=== PATIENT | female | born 2005 | race Caucasian/White ===

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

== ENCOUNTER 2024-04-05 16:31 | Emergency (ER) | payer OTHER, SELFPAY ==
[2024-04-05 16:33] VITALS: BP 122/81; PULSE 66; RESP 18; TEMP 36.9; O2SAT 99; BMI 24.0
--- NOTE | 2024-04-05 16:35 | ED.GENADULT ---
HPI - General Adult General Date Seen: 04/05/24 Chief complaint: Headache/Migraine Stated complaint: migraine Time Seen by Provider: 04/05/24 16:34 History of Present Illness HPI narrative: 18-year-old female with a history migraine headaches referred from the [facility] for evaluation of intractable headache. She has apparently been experiencing headache for the past few days. She was seen in the emergency room and another ER yesterday. She went to the [facility] for ongoing headache pain today. Since they did not have any sufficient headache medications are for her, they referred her here to the ER. Vital signs were stable in the urgent care. No fever. Blood pressure normal. Per records through the [facility] care link it looks like she was seen in the emergency room at [facility] on 04/02 for headache. She had been seen in the urgency room on the day prior to that. doctors notes from that visit are not available. . Patient is able to show any screen shots of her discharge or. She received a combination of Toradol, Reglan, Benadryl while at the urgency room on and did have some temporarily improvement after that. At the [facility] ER on Saturday she received Haldol, Toradol, with no relief. She has a history of occasional headaches but not really frequent or chronic headaches or migraines. She typically gets headaches behind her right eye. Her current headache began Saturday. No trauma antecedent. No recent fever. No known neck pain or chiropractic manipulation. The headache started gradually in the back of her head at the nape of her neck on Saturday and got steadily worse throughout the day and much worse Saturday evening. Headache is fairly generalized. Feels like pressure like her brain is going to squeeze out of her ears. Came on gradually and got steadily worse through the day. It has been fairly generalized since Saturday. It has been fairly continuous. Perhaps get slightly better when she lays down a bit worse when she gets up. It is associated with some nausea but not much vomiting. Vision has been normal. No focal numbness or weakness. No confusion. No neck stiffness. No fever chills. She does have some mild nasal congestion which she attributes to seasonal allergies that began today. She had not had any nasal congestion earlier in the week. No cough. No diarrhea. Urination has been normal. No abdominal pain or flank pain. She had a test 2 days ago at the [facility] ER and it was negative. Related Data Home Medications ?Medication ?Instructions ?Recorded ?Confirmed levonorgestrel 21 mcg/24 hr (up to 1 device intrauterine ONCE 08/29/22 04/05/24 8 years) 52 mg intrauterine device (Mirena) Previous Rx's ?Medication ?Instructions ?Recorded albuterol sulfate 90 mcg/actuation 1 inh inhalation Q6-8H PRN 11/21/23 aerosol inhaler shortness of breath or wheezing #8.5 grams fluticasone 250 mcg-salmeterol 50 1 inh inhalation BID #60 ea 11/21/23 mcg/dose blistr powdr for inhalation (Advair Diskus) fluoxetine 40 mg capsule 40 mg PO QDAY #90 caps 12/03/23 trazodone 50 mg tablet 100 mg (2 x 50 mg) PO QHS #180 tabs 12/03/23 Allergies Allergy/AdvReac Type Severity Reaction Status Date / Time doxycycline AdvReac Mild Vomiting Verified 04/05/24 17:22 PFSH [facility] Medical History (Updated 04/05/24 @ 19:10 by Edmund Camarillo MD) Right wrist pain ?M25.531 - Pain in right wrist (ICD-10) Postconcussion syndrome ?F07.81 - Postconcussional syndrome (ICD-10) Headache ?R51.9 - Headache, unspecified (ICD-10) Ankle pain, left ?M25.572 - Pain in left ankle and joints of left foot (ICD-10) Surgical History S/P correction of deviated nasal septum ?Z98.890 - Other specified postprocedural states (ICD-10) History of tonsillectomy and adenoidectomy (07/02/12) ?Z90.89 - Acquired absence of other organs (ICD-10) History of surgery on extremity ?Z98.890 - Other specified postprocedural states (ICD-10) Family History Family/Other Heart disease Uncle Colon cancer Mother Thyroid disease FH: mental illness Father High cholesterol Other High blood pressure History of hyperlipidemia Stroke Social History Narrative: Does not drink alcohol Does not use illicit drugs Non-smoker Smoking Status: Never smoker Do you use any of these nicotine containing products: None How often do you have a drink containing alcohol: never AUDIT-C Alcohol total score: 0 Non-prescribed substance use: denies use Little interest or pleasure in doing things: several days Feeling down, depressed, or hopeless: not at all Exam Narrative: Exam Narrative: Primary Survey: A- patent. Speaking clearly. Phonation normal. No stridor. B- breathing easily. Lung sounds clear and equal. Oxygen saturation normal on room air C- no active bleeding. Blood pressure stable. Symmetric pulses and cap refill in 4 extremities. D- alert and oriented x3. GCS 15. No focal deficits. Constitutional: Appears well-developed and well-nourished. Alert. Conversant. Non toxic. HENT: Head: Atraumatic. Nose: Nose normal. Mouth/Throat: Oral mucosa is clear and moist. no trismus. Pharynx normal. Tonsils surgically absent. Eyes: Conjunctivae normal. EOM normal. Pupils equal, round, and reactive to light. No scleral icterus. Neck: Normal range of motion. Neck supple. No tracheal deviation present. Cardiovascular: Normal rate, regular rhythm. No gallop. No friction rub. No murmur heard. Symmetric radial artery pulses Pulmonary/Chest: Effort normal. No stridor. No respiratory distress. No wheezes. No rales. No rhonchi . No tenderness. Abdominal: Soft. Bowel sounds normal. No distension. No mass. No tenderness. No rebound. No guarding. Musculoskeletal: RUE: Normal range of motion. No tenderness. No deformity LUE: Normal range of motion. No tenderness. No deformity RLE: Normal range of motion. No edema. No tenderness. No deformity LLE: Normal range of motion. No edema. No tenderness. No deformity Lymph: No cervical adenopathy. Neurological: Mental status normal. Attention normal. Alert and oriented x3. GCS 15. Memory normal. Speech fluent. Cognition normal. Cranial Nerves intact II-XII except I did not formally test gag or visual acuity. EOMI. Palate elevates symmetrically and tongue protrudes in the midline. Strength: 5/5 trapezius on the right and left 5/5 deltoid on the right and left 5/5 biceps on the right and left 5/5 triceps on the right and left 5/5 division sergeant on the right and left 5/5 thumb opposition on the right and left 5/5 finger abduction on the right and left 5/5 hip flexors (L3) on the right and left 5/5 quadriceps (L4) on the right and left 5/5 tibialis anterior on the right and left 5/5 EHL (L5) on the right and left 5/5 gastrocnemius (S1) on the right and left 5/5 hamstring on the right and left Sensation intact to light touch in both upper extremities (C4-T1) Sensation intact to light touch in Both lower extremities (L4-S1). Finger to nose and coordination normal. Gait normal. Skin: Skin is warm and dry. No rash noted. No pallor. Normal capillary refill. Psychiatric: Normal mood. Normal affect. Has her hoodie pulled down over her eyes because she is uncomfortable but she is otherwise polite. Const: Vital Signs, click to edit/add: Vital Signs - 24 hr 04/05/24 16:33 04/05/24 18:25 Temperature 98.5 F Pulse Rate [Right Pulse Oximeter] 66 62 Respiratory Rate 18 16 Blood Pressure [Ri ght Upper Arm] 122/81 119/77 Pulse Oximetry 99 100 Oxygen Delivery Me thod Room Air Room Air Course Course ED Course: Recheck -1800. Headache improving slightly but not a lot better. Will add additional meds. Reevaluation(s) Reevaluation #1: Recheck-says her headache is now getting much better after Zyprexa. Reevaluation #2: Recheck-for she is requesting discharge home. She texted her mother to come pick her up. Vital Signs Vital signs: Initial Vital Signs Temperature 98.5 F 04/05/24 16:33 Temperature Source Temporal Artery Scan 04/05/24 16:33 Pulse Rate 66 04/05/24 16:33 Respiratory Rate 18 04/05/24 16:33 Blood Pressure 122/81 04/05/24 16:33 Blood Pressure Mean 94 04/05/24 16:33 Blood Pressure Position Sitting 04/05/24 16:33 Pulse Oximetry 99 04/05/24 16:33 Oxygen Delivery Method Room Air 04/05/24 16:33 Vital Signs Temperature 98.5 F 04/05/24 16:33 Pulse Rate 66 04/05/24 16:33 Respiratory Rate 18 04/05/24 16:33 Blood Pressure 122/81 04/05/24 16:33 Pulse Oximetry 99 04/05/24 16:33 Oxygen Delivery Method Room Air 04/05/24 16:33 Temperature 98.5 F 04/05/24 16:33 Pulse Rate 62 04/05/24 18:25 Respiratory Rate 16 04/05/24 18:25 Blood Pressure 119/77 04/05/24 18:25 Pulse Oximetry 100 04/05/24 18:25 Oxygen Delivery Method Room Air 04/05/24 18:25 Medications Administered Medications: Discontinued Medications Generic Name Dose Route Start Last Admin Trade Name Freq PRN Reason Stop Dose Admin Dexamethasone 10 mg 04/05/24 16:59 04/05/24 17:35 Dexamethasone 10 Mg/Ml Inj PO 04/05/24 17:00 10 mg ONCE ONE Administration Diphenhydramine HCl 12.5 mg 04/05/24 16:59 04/05/24 17:39 Diphenhydramine 50 Mg/Ml Inj IVP 04/05/24 17:00 12.5 mg ONCE ONE Administration Sodium Chloride 1,000 mls @ 1,000 mls/hr 04/05/24 17:00 04/05/24 18:47 0.9 % Sodium Chloride 1000 Ml IV 04/05/24 17:59 Infused .Q1H MADALYN Infusion Ketorolac Tromethamine 15 mg 04/05/24 16:59 04/05/24 17:36 Ketorolac 15 Mg/Ml Inj IVP 04/05/24 17:00 15 mg ONCE ONE Administration Metoclopramide HCl 10 mg 04/05/24 16:59 04/05/24 17:37 Metoclopramide Hcl 5 Mg/Ml Inj IVP 04/05/24 17:00 10 mg ONCE ONE Administration Olanzapine 5 mg 04/05/24 18:03 04/05/24 18:24 Olanzapine 5 Mg/Ml Inj IVP 04/05/24 18:04 5 mg ONCE ONE Administration Medical Decision Making MDM Narrative Medical decision making narrative: Ths patient presents with a headache. It began gradually on Saturday morning and progressed and worsened throughout the day then. It has been fairly persistent since then. A broad differential diagnosis was considered including tension, migraine, analgesic rebound, occipital neuralgia, etc. Other less common but serious causes considered included meningitis, encephalitis, subarachnoid bleed, stroke, tumor, etc. overall with gradual onset, would be low likelihood for vascular catastrophe such as subarachnoid or cervical artery dissection. However given that this is her 3rd visit to ER in the past 3 days for this headache, we did obtain neuro imaging. Head CT scan is negative for any acute intracranial hemorrhage. Discussed with the patient that at this point (5 days out from onset) sensitivity of noncontrast head CT is inadequate to completely rule out subarachnoid. CT angiogram though is negative for any aneurysm. Discussed possible lumbar puncture to look for xanthochromia. Discussed risks and benefits of the procedure. At this point the patient and I agree that the risks of postdural headache and discomfort from the procedure would outweigh the benefits. She does not have a fever. Normal white count. CRP normal. No neck stiffness or meningismus to suggest meningitis. She does not have any associated sore throat or cough to suggest COVID. Patients questions were answered and they feel improved after above interventions in ED. Supportive outpatient management is therefore indicated. Headache precautions given for home. She will return to the ER right away for headache comes back or she has any other problems. Lab Data Labs: Lab Results 04/05/24 Range/Units 17:15 WBC 7.05 (4.50-11.00) K/uL RBC 4.74 (4.00-5.20) m/uL Hgb 14.1 (12.0-16.0) gm/dL Hct 43.9 (33.0-51.0) % MCV 93 (80-100) fL MCH 30 (26-34) pg MCHC 32 (32-36) gm/dL RDW Coeff of Shweta 11.8 (11.5-15.5) % Plt Count 267 (140-440) K/uL Neut % (Auto) 66.6 (42.0-72.0) % Lymph % (Auto) 21.7 (20-44) % [place] % (Auto) 10.6 (0.0-11.0) % Eos % (Auto) 0.3 (0.0-7.0) % Baso % (Auto) 0.1 (0.0-3.0) % Neut # (Auto) 4.69 (1.7-7.0) K/uL Lymph # (Auto) 1.53 (0.90-2.90) K/uL [place] # (Auto) 0.70 (0.00-0.90) K/UL Eos # (Auto) 0.02 (0.00-0.50) K/uL Baso # (Auto) 0.01 (0.00-0.30) K/uL Abs Immat Gran (auto) 0.05 (0.00-0.30) K/uL Imm/Tot Granulo (auto) 0.7 % Sodium 140 (135-149) mmol/L Potassium 3.3 L (3.6-5.1) mmol/L Chloride 104 (96-114) mmol/L Carbon Dioxide 24 (20-32) mmol/L Anion Gap 12 (7-15) mEq/L BUN 8 (5-24) mg/dL Creatinine 0.7 (0.5-1.5) mg/dL Estimated Creat Clear 110.70 Estimated GFR 127 ml/min Glucose 99 (60-115) mg/dL Calcium 9.9 (8.4-10.6) mg/dL C-Reactive Protein < 0.5 L (0.5-1.0) mg/dL Imaging Data CT scan - head: Attestation: I have reviewed the pertinent imaging results. Radiologist's impression: IMPRESSION: No CT evidence of acute intracranial abnormality. CTA Head and Neck: Attestation: I have reviewed the pertinent imaging results. Radiologist's impression: Head IMPRESSION: No intracranial proximal large vessel occlusion, flow-limiting luminal stenosis, or cerebral aneurysm. Neck IMPRESSION: Patent cervical arterial vasculature without hemodynamically significant luminal stenosis. Discharge Plan Discharge Clinical Impression: Headache Patient Disposition: Home, Self-Care Condition: Stable Instructions: Acute Headache (ED) Additional Instructions: As we discussed, use caution tonight. Do not drive or operate machinery. Do not drink alcohol. Get plenty of rest tonight. If you have any worsening symptoms such as fever, nausea vomiting, blurry vision, or if your headache comes back, please return to the ER right away to be rechecked. Prescriptions: No Action Mirena 21 mcg/24 hours (8 yrs) 52 mg intrauterine device 1 device intrauterine ONCE Rx Instructions: as a single dose fluticasone propion-salmeterol [Advair Diskus] 250-50 mcg/dose blister with device 1 inh inhalation BID Qty: 60 3RF albuterol sulfate 90 mcg/actuation HFA aerosol inhaler 1 inh inhalation Q6-8H PRN (Reason: shortness of breath or wheezing) Qty: 8.5 3RF trazodone 50 mg tablet 100 mg PO QHS Qty: 180 3RF fluoxetine 40 mg capsule 40 mg PO QDAY Qty: 90 3RF Follow Up/Referrals: Cassandra Breen PA-C [Primary Care Provider] - Stand Alone Forms: [facility] Info Instructions
--- NOTE | 2024-04-05 16:59 | CRLHL7_ITS ---
For Patients: As a result of the Century Cures Act, medical imaging exams and procedure reports are released immediately into your electronic medical record. You may view this report before your referring provider. If you have questions, please contact your health care provider. CLINICAL HISTORY: Migraines and neck pain. TECHNIQUE: Standard helical CT image acquisition through the head was performed. COMPARISON: Head CT dated 10/27/2022. FINDINGS: No acute intracranial hemorrhage, extra-axial collection, mass effect or midline shift. Jacques-white matter differentiation is preserved. The ventricles are normal in size and morphology. The orbits are unremarkable. The paranasal sinuses and mastoid air cells are well aerated. IMPRESSION: No CT evidence of acute intracranial abnormality. Please note that all CT scans at this facility use dose modulation, iterative reconstruction, and/or weight-based dosing when appropriate to reduce radiation dose to as low as reasonably achievable. Dictated by Len Gaffney MD @ 04/05/2024 5:54:29 PM (Electronically Signed)
--- NOTE | 2024-04-05 16:59 | CRLHL7_ITS ---
For Patients: As a result of the Century Cures Act, medical imaging exams and procedure reports are released immediately into your electronic medical record. You may view this report before your referring provider. If you have questions, please contact your health care provider. CLINICAL HISTORY: Migraines and neck pain. TECHNIQUE: Standard helical CT image acquisition through the neck was performed after intravenous contrast bolus enhancement. 3D and MIP reconstructions were performed at a separate workstation and permanently archived. COMPARISON: None available. FINDINGS: The origins of the great vessels from the aortic arch are patent. The common carotid arteries are patent. No significant luminal stenoses of the proximal ICAs by NASCET criteria. The more distal cervical segments of the ICAs are patent. The origins and cervical segments of the vertebral arteries are patent. IMPRESSION: Patent cervical arterial vasculature without hemodynamically significant luminal stenosis. Please note that all CT scans at this facility use dose modulation, iterative reconstruction, and/or weight-based dosing when appropriate to reduce radiation dose to as low as reasonably achievable. Dictated by Len Gaffney MD @ 04/05/2024 5:58:48 PM (Electronically Signed)
--- NOTE | 2024-04-05 16:59 | CRLHL7_ITS ---
For Patients: As a result of the Century Cures Act, medical imaging exams and procedure reports are released immediately into your electronic medical record. You may view this report before your referring provider. If you have questions, please contact your health care provider. CLINICAL HISTORY: Migraines and neck pain. TECHNIQUE: Standard helical CT image acquisition through the head following the administration of intravenous contrast was performed. 3D and MIP reconstructions were performed at a separate workstation and permanently archived. COMPARISON: None available. FINDINGS: No intracranial proximal large vessel occlusion or flow-limiting luminal stenosis. No evidence of cerebral aneurysm. No findings to suggest an arterial-venous shunting lesion. The major dural venous sinuses and deep venous system are patent. IMPRESSION: No intracranial proximal large vessel occlusion, flow-limiting luminal stenosis, or cerebral aneurysm. Please note that all CT scans at this facility use dose modulation, iterative reconstruction, and/or weight-based dosing when appropriate to reduce radiation dose to as low as reasonably achievable. Dictated by Len Gaffney MD @ 04/05/2024 5:59:30 PM (Electronically Signed)
--- OUTSIDE RECORDS SUMMARY | 2024-04-05 17:09 | XMS_ITS | Encounter Summary ---
Author Organization [place] Address [address] [facility] [place] [address] Care Team Providers Care Director Cpg Name Role Phone [facility] Primary Care Provider Carol Hughes MD Unavailable Carol Snider MD Unavailable [phone] Joseph Branes MD Unavailable [phone] Encounter Details Date Type Department Care Team (Late st Contact Info) Description [place]/20[place] [facility] [place] [facility] [address] [place] [address] Amber Lofton RN Social History Tobacco Use Types Packs/Day Years Used Date Smoking Tobacco: Never Smokeless Tobacco: Never Alcohol Use Standard Drinks/Week Comments No 0 (1 standard drink = 0.6 oz pur e alcohol) PHQ-2 Answer Date Recorded PHQ-2 Score 0 09/24/2023 Adolescent Education Answer Date Record ed Getting School Help Needed Not on file 04/28 Sex and Gender Information Value Date Recorded Sex Assigned at Not on file Gender Identity Not on file Sexual Orientation Not on file documented as of this encounter Plan of Treatment Not on file documented as of this encounter Visit Diagnoses Not on filedocumented in this encounter Care Teams Director Cpg Relationship Specialty Start Date End Date Clinic, [address] [address] PCP - General Internal Medicine 10/21/17 Carol Hughes MD [address] [place] [address] Orthopedics 11/23/17 Carol Snider MD [address] [address] Referring Physician Orthopaedic Surgery 11/23/17 Joseph Barnes MD [address] [place] [address] Assigned Musculoskeletal Provider 05/11/23 documented as of this encounter
--- OUTSIDE RECORDS SUMMARY | 2024-04-05 17:09 | XMS_ITS | Encounter Summary ---
Author Organization [place] Address [address] [place] [address] Care Team Providers Care School Business Manager Name Role Phone Clinic, [facility] Primary Care Provider Carol Hughes MD Unavailable [phone] Carol Snider MD Unavailable [phone] Joseph Barnes MD Unavailable [phone] Reason for Visit * Reason Onset Date Comments Schedule Surgery 03/31/2024 Encounter Details Date Type Department Care Team (Late st Contact Info) Description 03/31/2024 Telephone [facility] [address] [address] Joseph Barnes MD [address] [place] [id number] Schedule Surgery Social History Tobacco Use Types Packs/Day Years [...] on file documented as of this encounter Miscellaneous Notes * Telephone Encounter - Maggie Fine - 03/31/2024 3:44 PM CDT Other: Patient is calling to schedule screw removal surgery with Dr. Barnes. Please call her back. Could we [facility] this [facility] you [facility] or would you prefer to receive a phone call?: Patient would prefer a phone call Okay to leave a detailed message?: Yes at Cell number on file: Telephone Information: Mobile Not on file. documented in this encounter Plan of Treatment Not on file documented as of this encounter Visit Diagnoses Not on filedocumented in this encounter Care Teams School Business Manager Relationship Specialty Start Date End Date [facility], [address] [address] PCP - General Internal Medicine 10/21/17 Carol Hughes MD [address] [place] [address] Orthopedics 11/23/17 Carol Snider MD [address] [address] Referring Physician Orthopaedic Surgery 11/23/17 Joseph Barnes MD [address] [place] [id number] Assigned Musculoskeletal Provider 05/11/23 documented as of this encounter
--- OUTSIDE RECORDS SUMMARY | 2024-04-05 17:09 | XMS_ITS | Referral Summary ---
Author Organization [place] Address [address] [facility] [place] [address] Care Team Providers Care Machine Feller Name Role Phone Clinic, [facility] Primary Care Provider Carol Hughes MD Unavailable [phone] Carol Snider MD Unavailable [phone] Joseph Barnes MD Unavailable Encounters Date Type Department Care Team Description 04/03/2024 11:24 PM CDT - 04/04/2024 2:12 AM CDT Emergency [facility] Emergency Department [address] [place] [phone] Clement Camarillo MD Nonintractable headache, unspecified chronicity pattern, unspecified headache type Discharge Disposition: Home or Self Care 04/03/2024 Travel 04/01/2024 MyC Medical Advice [facility] [address] [address] Amber Lofton RN 03/31/2024 Telephone [facility] [address] [address] Joseph Barnes MD Schedule Surgery from Last 3 Months Allergies Active Allergy Reactions Criticality Noted Date Comments Doxycycline Nausea,Nausea and Vomiting Low 09/10/19 23 Medications Medication Sig Dispensed Refills Start Date End Date Status albuterol (PROAIR HFA/PROVENTIL HFA/VENTOLIN HFA) 108 (90 Base) MCG/ACT inhaler Inhale 2 puffs into the lungs every 6 hours as needed Active FLUoxetine (PROZAC) 40 MG capsule Take 1 capsule by mouth daily Active traZODone (DESYREL) 50 MG tablet Take 100 mg by mouth at bedtime Active gabapentin (NEURONTIN) 100 MG capsuleIndications:R ight leg pain Take 3 capsules (300 mg) by mouth at bedtime 50 capsule 08/07/2023 Active hydrOXYzine HCl (ATARAX) 25 MG tabletIndications:Ri ght leg pain Take 1 tablet (25 mg) by mouth 3 times daily as needed for itching, anxiety or other (pain) 20 tablet 08/07/2023 Active senna-docusate (SENOKOT-S/PERICOLAC E) 8.6-50 MG tabletIndications:Po st-op pain,Right leg pain Take 1 tablet by mouth 2 times daily 60 tablet 08/08/2023 Active oxyCODONE (ROXICODONE) 5 MG tabletIndications:Ri ght leg pain Take 1-2 tablets (5-10 mg) by mouth every 4 hours as needed for moderate to severe pain 30 tablet 08/08/2023 Active Active Problems Problem Noted Date Diagnosed Date Right leg pain 08/07/2023 Post-op pain 03/05/2018 Resolved Problems Problem Noted Date Diagnosed Date Resolved Date Pain in joint involving ankle and foot, left 8 05/13/2019 Aftercare following surgery of the musculoskeletal system 06/04/2018 05/13/2019 Left knee pain 12/03/2017 05/13/2019 Social History Tobacco Use Types Packs/Day Years Used Date Smoking Tobacco: Never Smokeless Tobacco: Never Tobacco Cessation:Counseling Given: Not Answered Alcohol Use Standard Drinks/Week Comments No 0 (1 standard drink = 0.6 oz pur e alcohol) PHQ-2 Answer Date Recorded PHQ-2 Score 0 09/24/2023 Adolescent Education Answer Date Record ed Getting School Help Needed Not on file 04/28 Sex and Gender Information Value Date Recorded Sex Assigned at Not on file Gender Identity Not on file Sexual Orientation Not on file Last Filed Vital Signs Vital Sign Reading Time Taken Comments Blood Pressure 126/72 04/04/2024 2:12 AM CDT Pulse 71 04/04/2024 2:12 AM CDT Temperature 37.1 ??C (98.7 ??F) 04/03/2024 11:16 PM C DT Respiratory Rate 16 04/04/2024 2:12 AM CDT Oxygen Saturation 97% 04/04/2024 2:12 AM CDT Inhaled Oxygen Concentration - - Weight 63.5 kg (140 lb) 04/03/2024 11:16 PM CDT Height 162.6 cm (5' 4) 08/07/2023 8:00 AM 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 LOOM 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 Body Mass Index 24.03 08/07/2023 8:00 AM JACQUARD LOOM HEDDLES TIER Plan of Treatment Not on file Medical Devices Implanted Type Area Hazmat Cdl A Driver Device Identifier Shelf Expiration Date Model / Serial / Lot Tibial Nail Implanted:Qty: 1 on 03/05/2018 by Joseph Barnes MD at [facility] Left: Tibia 09/11/2026 47-2495-34 0-09 / [id number] 5.0 Cortical Screw Implanted:Qty: 1 on 03/05/2018 by Joseph Barnes MD at [facility] Left: Tibia MALCOLM 06/13/2027 47-2484-04 0-50 / / [id number] 5.0 Cortical Screw Implanted:Qty: 1 on 03/05/2018 by Joseph Barnes MD at [facility] Left: Tibia 10/12/2026 47-2484-03 2-50 / / [id number] Malcolm Natural Nail Tibial Nail 9.3 Mm Yellow Implanted:Qty: 1 on 08/07/2023 by Joseph Barnes MD at [facility] Right: Leg MALCOLM [id number] 04/29/2032 47-249 5-32 0-09 [id number] Malcolm Natural Nail 5.0 Mm Cortical Screw 27.5 Mm Implanted:Qty: 1 on 08/07/2023 by Joseph Barnes MD at [facility] Right: Leg MALCOLM [id number] 05/14/2027 47-248 4- 750 / [id number] Malcolm Natural Nail 5.0 Mm Cortical Screw 37.5mm Implanted:Qty: 1 on 08/07/2023 by oJseph Barnes MD at [facility] Right: Leg MALCOLM [id number] 06/02/2032 47-248 4- / [id number] Advance Directives For more information, please contact: [phone] * Full Code (Latest Code Status on File) Date Activated Date Inactivated Comments 08/07/2023 6:12 PM 08/08/2023 6:23 PM All basic an d advanced life-sustaining interventions are performed as appropriate Question Answer Comments Code status determined by: Discussion with patie nt/ legal decision maker * Full Code Date Activated Date Inactivated Comments 03/06/2018 7:18 AM 08/07/2023 7:45 AM * Full Code Date Activated Date Inactivated Comments 03/05/2018 4:25 PM 03/06/2018 7:18 AM Care Teams Machine Feller Relationship Specialty Start Date End Date Clinic, [address] [address] PCP - General Internal Medicine 10/21/17 Carol Hughes MD [address] [place] [address] Orthopedics 11/23/17 Carol Snider MD [address] [address] Referring Physician Orthopaedic Surgery 11/23/17 Joseph Barnes MD [address] [place] [address] Assigned Musculoskeletal Provider 05/11/23
--- OUTSIDE RECORDS SUMMARY | 2024-04-05 17:09 | XMS_ITS | Clinical Summary ---
Author Organization [place] Address [address] [place] [address] Care Team Providers Care Auction Block Clerk Name Role Phone Clinic, [facility] Primary Care Provider Carol Hughes MD Unavailable Carol Snider MD Unavailable Joseph Barnes MD Unavailable Allergies Active Allergy Reactions Criticality Noted Date [...] 06/04/2018 05/13/2019 Left knee pain 12/03/2017 05/13/2019 Encounters Date Type Department Care Team Description 04/03/2024 11:24 PM CDT - 04/04/2024 2:12 AM CDT Emergency [facility] Emergency Department [address] [place] [phone] Clement Camarillo MD Nonintractable headache, unspecified chronicity pattern, unspecified headache type Discharge Disposition: Home or Self Care 04/03/2024 Travel 04/01/2024 MyC Medical Advice [facility] [address] [phone] Amber Lofton RN 03/31/2024 Telephone [facility] [address] [phone] Joseph Barnes MD Schedule Surgery from Last 3 Months Social History Tobacco Use Types Packs/Day Years [...] 162.6 cm (5' 4) 08/07/2023 8:00 AM RODDING ANODE WORKER Body Mass Index 24.03 08/07/2023 8:00 AM RODDING ANODE WORKER Plan of Treatment Health Maintenance Due Date Last Done Comments ADVANCE CARE PLANNING 2003 ANNUAL REVIEW OF HM ORDERS 2003 CHLAMYDIA SCREENING 2003 YEARLY PREVENTIVE VISIT 2003 HIV SCREENING 2018 HEPATITIS C SCREENING 2021 COVID-19 Vaccine ( season) 2024 08/15/2021, 10/25/2020, 10/08/2020 INFLUENZA VACCINE (#1) 2024 , 05/01/2019, 06/10/2009, Additional history exists DTAP/TDAP/TD IMMUNIZATION (7 - Td or Tdap) 08/30/2024 08/30/2014, 08/30/2014, 03/10/2008, Additional history exists HEPATITIS B IMMUNIZATION Completed 004, 2003, 2003 Pneumococcal Vaccine: Pediatrics (0 to 5 Years) and At-Risk Patients (6 to 64 Years) Aged Out 09/08/2004, 03/09/2004, 2003, Additional history exists No longer eligible based on patient's age to complete this topic HPV IMMUNIZATION Completed 03/11/2015, , 08/30/2014 MENINGITIS IMMUNIZATION Completed 05/16/20 21, 08/30/2014, 01/19/2004 PHQ-2 (once per calendar year) Completed 09/24/2023, 05/07/2023, 01/07/2018 RSV MONOCLONAL ANTIBODY Aged Out No l onger eligible based on patient's age to complete this topic Medical Devices Implanted Type Area Casting Wheel Operator Helper Device Identifier Shelf Expiration Date Model / Serial / Lot Tibial Nail Implanted:Qty: 1 on 03/05/2018 by Joseph Barnes MD at [facility] Left: Tibia 09/11/2026 47-2495-34 0-09 / / [id number] 5.0 Cortical Screw Implanted:Qty: 1 on 03/05/2018 by Joseph Barnes MD at [facility] Left: Tibia MALCOLM 06/13/2027 47-2484-04 0-50 / / [id number] 5.0 Cortical Screw Implanted:Qty: 1 on 03/05/2018 by Joseph Barnes MD at [facility] Left: Tibia 10/12/2026 47-2484-03 2-50 / / [id number] Malcolm Natural Nail Tibial Nail 9.3 Mm Yellow Implanted:Qty: 1 on 08/07/2023 by Joseph Barnes MD at [facility] Right: Leg MALCOLM [id number] 04/29/2032 47-249 5-32 0- / [id number] Malcolm Natural Nail 5.0 Mm Cortical Screw 27.5 Mm Implanted:Qty: 1 on 08/07/2023 by Joseph Barnes MD at [facility] Right: Leg MALCOLM [id number] 05/14/2027 47-248 4-02 7-50 / / [id number] Malcolm Natural Nail 5.0 Mm Cortical Screw 37.5mm Implanted:Qty: 1 on 08/07/2023 by Joseph Barnes MD at [facility] Right: Leg MALCOLM [id number] 06/02/2032 47-248 4-03 7-50 / / [id number] Advance Directives For more information, please contact: [phone] * Full Code (Latest Code Status on [...] 4:25 PM 03/06/2018 7:18 AM Care Teams Auction Block Clerk Relationship Specialty Start Date End Date Clinic, [address] [address] PCP - General Internal Medicine 10/21/17 Carol Hughes MD [address] [place] [address] Orthopedics 11/23/17 Carol Snider MD [address] [address] Referring Physician Orthopaedic Surgery 11/23/17 Joseph Barnes MD [address] [place] [address] Assigned Musculoskeletal Provider 05/11/23
--- OUTSIDE RECORDS SUMMARY | 2024-04-05 17:09 | XMS_ITS | Encounter Summary ---
Author Organization [place] Address [address] [place] [address] Care Team Providers Care Occupational Therapy Department Chair Name Role Phone [facility] Primary Care Provider Carol Hughes MD Unavailable [phone] Carol Snider MD Unavailable Joseph Barnes MD Unavailable [phone] Encounter Details Date Type Department Care Team (Latest Contact Info) Description 04/03/2024 Travel Social History Tobacco Use Types Packs/Day Years [...] on filedocumented in this encounter Care Teams Occupational Therapy Department Chair Relationship Specialty Start Date End Date [address] [address] PCP - General Internal Medicine 4/9/18 Carol Hughes MD [address] [place] [address] Orthopedics 11/23/17 Carol Snider MD [address] [address] Referring Physician Orthopaedic Surgery 11/23/17 Joseph Barnes MD [address] [place] [address] Assigned Musculoskeletal Provider 05/11/23 documented as of this encounter
--- OUTSIDE RECORDS SUMMARY | 2024-04-05 17:09 | XMS_ITS | Encounter Summary ---
Author Organization [place] Address [address] [facility] [place] [address] Care Team Providers Care Senior Sales Associate Name Role Phone Clinic, [facility] Primary Care Provider Carol Hughes MD Unavailable Carol Snider MD Unavailable Joseph Barnes MD Unavailable Reason for Visit * Reason Comments Headache Nausea Encounter Details Date Type Department Care Team ([facility] st Contact Info) Description 04/03/2024 11:24 PM CDT - 04/04/2024 2:12 AM CDT Emergency [facility] Emergency Department [address] [place] [id number] Clement Camarillo MD [address] [place] [address] Nonintractable headache, unspecified chronicity pattern, unspecified headache type Discharge Disposition: Home or Self Care Social History Tobacco Use Types Packs/Day Years [...] on file documented as of this encounter Last Filed Vital Signs Vital Sign Reading Time Taken Comments Blood Pressure 126/72 04/04/2024 2:12 AM CDT Pulse 71 04/04/2024 2:12 AM CDT Temperature 37.1 ??C (98.7 ??F) 04/03/2024 11:16 PM C DT Respiratory Rate 16 04/04/2024 2:12 AM CDT Oxygen Saturation 97% 04/04/2024 2:12 AM CDT Inhaled Oxygen Concentration - - Weight 63.5 kg (140 lb) 04/03/2024 11:16 PM CDT Height - - Body Mass Index 24.03 08/07/2023 8:00 AM CARPENTER PROTOTYPE documented in this encounter Discharge Instructions * Attachments The following attachments cannot be sent through Care Everywhere. * Headache (Guamanian) documented in this encounter Medications at Time of Discharge Medication Sig Dispensed Refills Start Date End Date albuterol (PROAIR HFA/PROVENTIL HFA/VENTOLIN HFA) 108 (90 Base) MCG/ACT inhaler Inhale 2 puffs into the lungs every 6 hours as needed FLUoxetine (PROZAC) 40 MG capsule Take 1 capsule by mouth daily gabapentin (NEURONTIN) 100 MG capsuleIndications:Righ t leg pain Take 3 capsules (300 mg) by mouth at bedtime 50 capsule 08/07/2023 hydrOXYzine HCl (ATARAX) 25 MG tabletIndications:Right leg pain Take 1 tablet (25 mg) by mouth 3 times daily as needed for itching, anxiety or other (pain) 20 tablet 08/07/2023 oxyCODONE (ROXICODONE) 5 MG tabletIndications:Right leg pain Take 1-2 tablets (5-10 mg) by mouth every 4 hours as needed for moderate to severe pain 30 tablet 08/08/2023 senna-docusate (SENOKOT-S/PERICOLACE) 8.6-50 MG tabletIndications:Post- op pain,Right leg pain Take 1 tablet by mouth 2 times daily 60 tablet 08/08/2023 traZODone (DESYREL) 50 MG tablet Take 100 mg by mouth at bedtime documented as of this encounter ED Notes * Clement Camarillo MD - 04/03/2024 11:57 PM CDT Images from the original note were not included. [facility] ([facility]) 04/03/24 History Chief Complaint Patient presents with Headache Nausea HPI Erica Zepeda is a 18 year old female who with PMH of articular disc disorder of TMJ, asthma, migraine, epistaxis, otitis media, and social anxiety disorder presents to the ED due to headache and nausea. Patient reports she has a history of severe headaches, was just evaluated urgent care center yesterday where she got Toradol, Reglan, Benadryl and had improvement in symptoms temporarily, however they recurred today. She also had CTA imaging of her head yesterday which was unremarkable. She reports that her headache is better when lying down. Bright lights make her headaches worse. Headache is bilateral, usually starts behind her right eye, and usually manageable with over the counter medications such as excedrin. She denies fevers, chills, neck pain or stiffness, weakness, numbness, vision changes, or other complaints with this. She denies any trauma or whiplash. No additional complaints at this time. As per triage note, Patient has headache and nausea with intermittent vomiting since Saturday. She was seen at urgent care yesterday and given migraine medication and was told to go to ED if pain returned. Past Medical History Past Medical History: Diagnosis Date Post concussion syndrome Tonsillar hypertrophy Past Surgical History: Procedure Laterality Date DENTAL SURGERY wisdom teeth OPEN REDUCTION INTERNAL FIXATION RODDING INTRAMEDULLARY TIBIA Left 03/05/2018 Procedure: OPEN REDUCTION INTERNAL FIXATION RODDING INTRAMEDULLARY TIBIA; Left Tibia/Fibula Derotational Osteotomy ; Surgeon: Joseph Barnes MD; Location: [facility] OR OPEN REDUCTION INTERNAL FIXATION RODDING INTRAMEDULLARY TIBIA Right 08/07/2023 Procedure: RIGHT FIBULA AND TIBIA DEROTATIONAL OSTEOTOMY; Surgeon: Joseph Barnes MD; Location: [facility] OR TONSILLECTOMY & ADENOIDECTOMY albuterol (PROAIR HFA/PROVENTIL HFA/VENTOLIN HFA) 108 (90 Base) MCG/ACT inhaler FLUoxetine (PROZAC) 40 MG capsule gabapentin (NEURONTIN) 100 MG capsule hydrOXYzine HCl (ATARAX) 25 MG tablet oxyCODONE (ROXICODONE) 5 MG tablet senna-docusate (SENOKOT-S/PERICOLACE) 8.6-50 MG tablet traZODone (DESYREL) 50 MG tablet Allergies Allergen Reactions Doxycycline Nausea and Nausea and Vomiting Family History No family history on file. Social History Social History Tobacco Use Smoking status: Never Smokeless tobacco: Never Substance Use Topics Alcohol use: No Drug use: No Past medical history, past surgical history, medications, allergies, family history, and social history were reviewed with the patient. No additional pertinent items. A medically appropriate review of systems was performed with pertinent positives and negatives noted in the HPI, and all other systems negative. Physical Exam BP: 132/88 Pulse: 68 Temp: 98.7 ??F (37.1 ??C) Resp: 19 Weight: 63.5 kg (140 lb) SpO2: 98 % Physical Exam Vitals and nursing note reviewed. Constitutional: General: She is not in acute distress. Appearance: Normal appearance. She is not diaphoretic. HENT: Head: Atraumatic. Mouth/Throat: Mouth: Mucous membranes are moist. Eyes: General: No scleral icterus. Conjunctiva/sclera: Conjunctivae normal. Cardiovascular: Rate and Rhythm: Normal rate. Heart sounds: Normal heart sounds. Pulmonary: Effort: No respiratory distress. Breath sounds: Normal breath sounds. Abdominal: General: Abdomen is flat. Musculoskeletal: Cervical back: Neck supple. Skin: General: Skin is warm. Findings: No rash. Neurological: General: No focal deficit present. Mental Status: She is alert and oriented to person, place, and time. Psychiatric: Mood and Affect: Mood normal. Behavior: Behavior normal. ED Course, Procedures, & Data Procedures No results found for any visits on 04/03/24. Medications sodium chloride 0.9% BOLUS 1,000 mL (1,000 mLs Intravenous $New Bag 04/04/24 0102) magnesium sulfate 2 g in 50 mL sterile water intermittent infusion (2 g Intravenous $New Bag 04/04/24 010) haloperidol lactate (HALDOL) injection 5 mg (5 mg Intravenous $Given 04/04/24 0100) diphenhydrAMINE (BENADRYL) injection 25 mg (25 mg Intravenous $Given 04/04/24 010) ketorolac (TORADOL) injection 30 mg (30 mg Intravenous Not Given 04/04/24 0142) Labs Ordered and Resulted from Time of ED Arrival to Time of ED Departure - No data to display No orders to display Critical care was not performed. Medical Decision Making The patient's presentation was of moderate complexity (an acute illness with systemic symptoms). The patient's evaluation involved: review of external note(s) from 1 sources (see separate area of note for details) The patient's management necessitated high risk (a parenteral controlled substance). Assessment & Plan Erica Zepeda is a 18 year old female who with PMH of articular disc disorder of TMJ, asthma, migraine, epistaxis, otitis media, and social anxiety disorder presents to the ED due to headache and nausea. Patient is nontoxic-appearing on exam, his vital signs within normal limits. She is neurologically intact. She has no red flag symptoms with this previously like flat and she just had CT imagingthat was unremarkable. She has noted no weakness, numbness, or vision changes. We did opt for more aggressive IV medication treatment today with Haldol, IV magnesium, Toradol, and IV fluids. Patient refused toradol this evening as she felt better after haldol and magnesium and fluids. Will plan for patient to follow-up outpatient as she may require specialist such as neurology to assist with management if she has recurrent headaches that are refractory to typical therapy. I have reviewed the nursing notes. I have reviewed the findings, diagnosis, plan and need for follow up with the patient. New Prescriptions No medications on file Final diagnoses: Nonintractable headache, unspecified chronicity pattern, unspecified headache type Clement Camarillo MD [facility] 04/03/2024 Clement Camarillo MD 04/04/24 0146 * Meli Morfin RN - 04/03/2024 11:17 PM CDT Headache and nausea with intermittent vomiting since Saturday. Was seen at urgent care yesterday andgiven migraine medication and was told to go to ED if pain returned Triage Assessment (Adult) Row Name 04/03/24 5701 Triage Assessment Airway WDL WDL Respiratory WDL Respiratory WDL WDL Skin Circulation/Temperature WDL Skin Circulation/Temperature WDL WDL Cardiac WDL Cardiac WDL WDL Peripheral/Neurovascular WDL Peripheral Neurovascular WDL WDL Cognitive/Neuro/Behavioral WDL Cognitive/Neuro/Behavioral WDL WDL documented in this encounter Plan of Treatment Not on file documented as of this encounter Visit Diagnoses Diagnosis Nonintractable headache, unspecified chronicity pattern, unspecified headache type documented in this encounter Administered Medications Inactive Administered Medications - up to 3 most recent administrations Medication Order MAR Action Action Date Dose Rate Site diphenhydrAMINE (BENADRYL) injection 25 mg 25 mg, Intravenous, ONCE, On Sat04/03/24 at 2355, For 1 dose $Given 04/04/2024 1:01 AM CDT 25 mg haloperidol lactate (HALDOL) injection 5 mg 5 mg, Intravenous, ONCE, Administer over 1 Minutes, On Sat04/03/24 at 2355, For 1 dose $Given 04/04/2024 1:00 AM CDT 5 mg magnesium sulfate 2 g in 50 mL sterile water intermittent infusion 2 g, Intravenous, Administer over 60 Minutes, at 50 mL/hr, ONCE, On Sat04/03/24 at 2355, For 1 dose Rate/Dose Verify 04/04/2024 2:06 AM CDT 50 mL/hr Rate/Dose Verify 04/04/2024 2:05 AM CDT 50 mL/h r $New Bag 04/04/2024 1:01 AM CDT 2 g 50 mL/hr sodium chloride 0.9% BOLUS 1,000 mL Intravenous, 1,000 mL, ONCE, at 1,000 mL/hr, Administer over 1 Hours, On Sat04/03/24 at 2355, For 1 dose $New Bag 04/04/2024 1:02 AM CDT 1,000 mLs 1000 mL/hr documented in this encounter Active and Recently Administered Medications Times are shown in CDT. Scheduled Medication Order 04/02/2024 04/03/2024 04/04/2024 diphenhydrAMINE (BENADRYL) injection 25 mg (COMPLETED) 25 mg, Intravenous, ONCE, On Sat04/03/24 at 2355, For 1 dose 0101 ($Given - Provi pedrito: Meli Morfin RN) haloperidol lactate (HALDOL) injection 5 mg (COMPLETED) 5 mg, Intravenous, ONCE, Administer over 1 Minutes, On Sat04/03/24 at 2355, For 1 dose 0100 ($Given - Provi pedrito: Meli Morfin RN) magnesium sulfate 2 g in 50 mL sterile water intermittent infusion (COMPLETED) 2 g, Intravenous, Administer over 60 Minutes, at 50 mL/hr, ONCE, On Sat04/03/24 at 2355, For 1 dose 0101 ($New Bag - Pro vider: Meli Morfin RN)0205 (Rate/Dose Verify - Provider: Malina Casas RN)0206 (Rate/Dose Verify - Provider: Malina Casas, RN)0206 (Stopped - Provider: Malina Casas RN) sodium chloride 0.9% BOLUS 1,000 mL (COMPLETED) Intravenous, 1,000 mL, ONCE, at 1,000 mL/hr, Administer over 1 Hours, On Sat04/03/24 at 2355, For 1 dose 0102 ($New Bag - Pro vider: Meli Morfin RN)0205 (Stopped - Provider: Malina Csaas RN) documented in this encounter Care Teams Senior Sales Associate Relationship Specialty Start Date End Date [facility], [place] [address] PCP - General Internal Medicine 10/21/17 Carol Hughes MD [address] [place] [id number] Orthopedics 11/23/17 Carol Snider MD [address] [address] Referring Physician Orthopaedic Surgery 11/23/17 Joseph Barnes MD [address] [place] [phone] Assigned Musculoskeletal Provider 05/11/23 documented as of this encounter
[2024-04-05 17:24] LABS: Basophils Absolute Auto 0.01 K/uL (0.00-0.30); Basophils Percent Auto 0.1 % (0.0-3.0); Eosinophils Absolute Auto 0.02 K/uL (0.00-0.50); Eosinophils Percent Auto 0.3 % (0.0-7.0); Hematocrit 43.9 % (33.0-51.0); Hemoglobin* 14.1 gm/dL (12.0-16.0); Immature Granulocytes Abs Auto 0.05 K/uL (0.00-0.30); Immature Granulocytes Pct Auto 0.7 %; Lymphocytes Absolute Auto 1.53 K/uL (0.90-2.90); Lymphocytes Percent Auto 21.7 % (20-44); Mean Corpuscular HGB Conc 32 gm/dL (32-36); Mean Corpuscular Hemoglobin 30 pg (26-34); Mean Corpuscular Volume 93 fL (80-100); Monocytes Percent Auto 10.6 % (0.0-11.0); Neutrophils Absolute Auto 4.69 K/uL (1.7-7.0); Neutrophils Percent Auto 66.6 % (42.0-72.0); Platelet Count* 267 K/uL (140-440); RDW Coefficient of Variation % 11.8 % (11.5-15.5); Red Blood Count 4.74 m/uL (4.00-5.20); White Blood Count* 7.05 K/uL (4.50-11.00)
[2024-04-05 17:25] LABS: Slide Review Reflex No
[2024-04-05 17:32] LABS: Chloride* 104 mmol/L (96-114); Sodium* 140 mmol/L (135-149)
[2024-04-05 17:33] LABS: Potassium* 3.3 mmol/L (3.6-5.1)
[2024-04-05] MEDS: 0.9 % SODIUM CHLORIDE 1000 ml 1,000 ML IV (17:34)
[2024-04-05 17:35] LABS: Creatinine* 0.7 mg/dL (0.5-1.5); Estimated Glomerular Filt Rate 127 ml/min
[2024-04-05] MEDS: dexAMETHasone 10 MG/ML inj PO (17:35)
[2024-04-05 17:36] LABS: Anion Gap 12 mEq/L (7-15); Blood Urea Nitrogen* 8 mg/dL (5-24); Calcium* 9.9 mg/dL (8.4-10.6); Carbon Dioxide* 24 mmol/L (20-32); Glucose* 99 mg/dL (60-115)
[2024-04-05] MEDS: KETOROLAC 15 MG/ML inj IVP (17:36)
[2024-04-05] MEDS: METOCLOPRAMIDE HCL 5 MG/ML INJ 10 MG IVP (17:37)
[2024-04-05] MEDS: diphenhydrAMINE 50 MG/ML inj 12.5 MG IVP (17:39)
[2024-04-05 17:40] LABS: C Reactive Protein* < 0.5 mg/dL (0.5-1.0)
[2024-04-05] MEDS: OLANZapine 5 MG/ML inj IVP (18:24)
[2024-04-05 18:25] VITALS: BP 119/77; PULSE 62; RESP 16; O2SAT 100
== END 2024-04-05 19:28 | disposition home or self-care (01) ==
PROVIDERS: Emergency Provider Emergency Medicine; PCP Physician Assistant Medical
DX: R51.9 Headache, unspecified (principal)
CPT/HCPCS: 36415; 70450; 70496; 70498; 80048; 85025; 86140; 96361; 96374; 96375; 99284; 99285; J1100; J1200; J1885; J2765; J7030; Q9967

== ENCOUNTER 2024-08-25 14:02 | Emergency (ER) | payer OTHER, SELFPAY ==
--- OUTSIDE RECORDS SUMMARY | 2024-08-25 14:05 | XMS_ITS | Encounter Summary ---
Author Organization [place] Address [address] [facility] [place] [address] Care Team Providers Care Welder Assembler Name Role Phone Clinic, [facility] Primary Care Provider Carol Hughes MD Unavailable [phone] Carol Snider MD Unavailable [phone] Josehp Barnes MD Unavailable [phone] Encounter Details Date Type Department Care Team (Latest Contact Info) Description 07/28/2024 Travel Social History Tobacco Use Types Packs/Day Years Used Date Smoking Tobacco: Never Smokeless Tobacco: Never Alcohol Use Standard Drinks/Week Comments No 0 (1 standard drink = 0.6 oz pur e alcohol) PHQ-2 Answer Date Recorded PHQ-2 Score 0 09/24/2023 Adolescent Education Answer Date Record ed Getting School Help Needed Not on file 04/28 Interpersonal Safety Answer Date Record ed Do you feel physically and e motionally safe where you currently live? Yes 05/20/2024 Within the past 12 months, h ave you been hit, slapped, kicked or otherwise physically hurt by someone? No 05/20/2024 Within the past 12 months, h ave you been humiliated or emotionally abused in other ways by your partner or ex-partner? 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 Gender Identity Not on file Sexual Orientation Not on file documented as of this encounter Plan of Treatment Upcoming Encounters Date Type Department Care Team (Late st Contact Info) Description 11/03/2024 11:10 AM CDT Office Visit [facility] [address] [place] [address] Joseph Barnes MD [address] [place] [id number] documented as of this encounter Visit Diagnoses Not on filedocumented in this encounter Care Teams Welder Assembler Relationship Specialty Start Date End Date Clinic, [address] [address] PCP - General Internal Medicine 10/21/17 Carol Hughes MD [address] [place] [id number] Orthopedics 11/23/17 Carol Snider MD [address] [address] Referring Physician Orthopaedic Surgery 11/23/17 Joseph Barnes MD [address] [place] [phone] Assigned Musculoskeletal Provider 05/11/23 documented as of this encounter
--- OUTSIDE RECORDS SUMMARY | 2024-08-25 14:05 | XMS_ITS | Encounter Summary ---
Author Organization [place] Address [address] [facility] 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 Gender Identity Not on file Sexual Orientation Not on file documented as of this encounter Plan of Treatment Upcoming Encounters Date Type Department Care Team (Late st Contact Info) Description 11/03/2024 11:10 AM CDT Office Visit [facility] [address] [place] [address] Joseph Barnes MD [address] [place] [address] documented as of this encounter Visit Diagnoses Not on filedocumented in this encounter Care Teams Copper Roller Handler Printing Relationship Specialty Start Date End Date Clinic, [address] [address] PCP - General Internal Medicine 10/21/17 Carol Hughes MD [address] [place] [address] Orthopedics 11/23/17 Carol Snider MD [address] [address] Referring Physician Orthopaedic Surgery 11/23/17 Joseph Barnes MD [address] [place] [id number] Assigned Musculoskeletal Provider 05/11/23 documented as of this encounter
--- OUTSIDE RECORDS SUMMARY | 2024-08-25 14:05 | XMS_ITS | Clinical Summary ---
Author Organization [facility] Address [address] [place] [address] Care Team Providers Care Part Time Name Role Phone Needs Pcp, Assignment Primary Care Provider [phone] Source Comments You are receiving this document as you are listed as the primary care provider,follow-up provider, or the patient has been referred to you for consultation.This is in compliance with the Medicare and[facility] Cent[facility] EHR Incentive Program,which states Providers who transition their patient to another setting of careor provider of care or refers their patient to another provider of care shouldprovide summary care record for each transition of care or referral. [facility] Allergies No known active allergies Medications Medication Sig Dispensed Refills Start Date End Date Status POTASSIUM CHLORIDE ORIndications:99 mg once a day Indications: 99 mg once a day Active Probiotic Product (PROBIOTIC DAILY OR) Take 1 Tablet by mouth daily. Active rizatriptan (MAXALT-ENVIRONMENTAL SERVICES MANAGER) 10 MG disintegrating tablet Take 1 Tablet (10 mg) by mouth as needed for Headache. at onset of migraine. May repeat in 2 hr if needed up to 30mg in 24 hr & MAX use 5 days/month 12 Tablet 04/10/2024 Active Active Problems Problem Noted Date Diagnosed Date Constipation 11/11/2006 Overview (03/06/2017): LW Modifier: on mirilax ; Constipation NOS Abdominal pain 07/04/2006 Overview (03/06/2017): LW Modifier: possible gastitis, on Zantac ; Abdominal Discomfort Otitis media 04/30/2006 Overview (03/06/2017): LW Onset: 38Xfw20 ; Otitis Media Acute Problem related to psychosocial circumstances Overview (03/06/2017): LW Modifier: dad-Edmund,mom-Olga,sib-Will LW Onset: 29Hht02 ; Psychosocial Circumstance NOS Resolved Problems Problem Noted Date Diagnosed Date Resolved Date Chronic rhinitis 07/02/2005 09/01/2005 Overview (03/06/2017): LW Modifier: amox LW Onset: 84Hve64 ; Rhinitis Purulent Immunizations Name Administration Dates Next Due [id number] (Pediarix) 2003,2003,0 2003 DTaP/Hib 09/08/2004 Flu Vac Preserv Free (6-35 mo) 06/13/2005,2003 Hib (ActHIB) 2003,2003,2003 MMR 06/20/2004 Pneumococcal 7, PED 09/08/2004,03/09/2004,2003,2003 Varicella 06/20/2004 Social History Tobacco Use Types Packs/Day Years Used Date Smoking Tobacco: Never Alcohol Use Standard Drinks/Week Comments Never 0 (1 standard drink = 0.6 oz pur e alcohol) AUDIT-C Answer Date Recorded Frequency of Alcohol Consumption Never 11/08/2018 Average Number of Drinks Not on file 019 Frequency of Binge Drinking Not on file 10/14 Sex and Gender Information Value Date Recorded Sex Assigned at Not on file Gender Identity Not on file Sexual Orientation Not on file Last Filed Vital Signs Vital Sign Reading Time Taken Comments Blood Pressure 121/89 04/10/2024 3:46 AM CDT Pulse 79 04/10/2024 3:46 AM CDT Temperature 36.6 C (97.9 F) 04/09/2024 9:02 PM CDT Respiratory Rate 16 04/09/2024 9:02 PM CDT Oxygen Saturation 98% 04/10/2024 3:46 AM CDT Inhaled Oxygen Concentration - - Weight 63.5 kg (140 lb) 04/09/2024 9:02 PM CDT Height 162.6 cm (5' 4) 04/09/2024 9:02 PM CDT Body Mass Index 24.03 04/09/2024 9:02 PM CDT Plan of Treatment Health Maintenance Due Date Last Done Comments Cervical Cancer Screening Due 2003 Chlamydia 2003 Hep C Screening (Preventive Services) 2003 HIV Screening (Preventive Services) 2019 Adult Preventive Visit 2021 COVID-19 Vaccine ( season) 2024 10/25/2020, 10/08/2020 Influenza (#1) 2024 06/20/2020, 04/14, 04/21/2009, Additional history exists DTaP/Tdap/Td (7 - Tdap) 08/30/2024 08/30/19 15, 03/10/2008, 09/08/2004, Additional history exists Zoster/Shingles (1 of 2) 2053 HepB Completed 2003, 09/13, 2003 Hib Completed 09/08/2004, 11/13, 2003, Additional history exists Pneumococcal Aged Out 09/08/2004, 02/13, 2003, Additional history exists No longer eligible based on patient's age to complete this topic IPV (Polio) Completed 03/10/2008, 11/13, 2003, Additional history exists Varicella Completed 03/10/2008, 06/20/2004 MCV4 Aged Out 08/30/2014 No longer eligi ble based on patient's age to complete this topic HPV Vaccine Completed 03/11/2015, 10/14, 08/30/2014 HepA Completed 03/11/2015, 08/30/2014 Care Teams Part Time Relationship Specialty Start Date End Date Needs Pcp, [place] [address] PCP - General 04/10/24
--- OUTSIDE RECORDS SUMMARY | 2024-08-25 14:05 | XMS_ITS | Encounter Summary ---
Author Organization [place] Address [address] 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 Gender Identity Not on file Sexual Orientation Not on file documented as of this encounter Plan of Treatment Upcoming Encounters Date Type Department Care Team (Late st Contact Info) Description 11/03/2024 11:10 AM CDT Office Visit [facility] [address] [place] [address] Joseph Barnes MD [address] [place] [phone] documented as of this encounter Visit Diagnoses Not on filedocumented in this encounter Care Teams Jeeper Operator Relationship Specialty Start Date End Date Clinic, [address] [address] PCP - General Internal Medicine 10/21/17 Carol Hughes MD [address] [place] [id number] Orthopedics 11/23/17 Carol Snider MD [address] [address] Referring Physician Orthopaedic Surgery 11/23/17 Joseph Barnes MD [address] [place] [phone] Assigned Musculoskeletal Provider 05/11/23 documented as of this encounter
--- OUTSIDE RECORDS SUMMARY | 2024-08-25 14:05 | XMS_ITS | Encounter Summary ---
Author Organization [place] Address [address] [place] [address] Care Team Providers Care Vp Marketing Name Role Phone Clinic, [facility] Primary Care Provider Carol Hughes MD Unavailable [phone] Carol Snider MD Unavailable [phone] Joseph Barnes MD Unavailable [phone] Reason for Visit * Diagnostic Imaging XR (Routine) - Pending Review Specialty Diagnoses / Procedures Referred By Bre rivero Referred To Contact Radiology. Diagnoses Status post surgery Procedures XR Tibia and Fibula Right 2 Views Joseph Barnes MD [address] [place] [address] Phone: tel: fax: Referral ID Status Reason Start Date Expiration Date V isits Requested Visits Authorized [id number] Pending Review 08/04/2024 08/04/2025 1 1 Encounter Details Date Type Department Care Team (Latest Contact Info) Description 08/18/2024 11:30 AM EVENT COORDINATOR Ancillary Procedure [facility] Orthopedic Xray [address] 4th [place] [address] Joseph Barnes MD [address] [place] [address] Status post surgery Social History Tobacco Use Types Packs/Day Years Used Date Smoking Tobacco: Never Smokeless Tobacco: Never Alcohol Use Standard Drinks/Week Comments No 0 (1 standard drink = 0.6 oz pur e alcohol) PHQ-2 Answer Date Recorded PHQ-2 Score 0 08/18/2024 Adolescent Education Answer Date Record ed Getting [...] on file Legal Sex Female 4:31 AM EVENT COORDINATOR Gender Identity Not on file Sexual Orientation Not on file documented as of this encounter Plan of Treatment Upcoming Encounters Date Type Department Care Team (Late st Contact Info) Description 11/03/2024 11:10 AM CDT Office Visit [facility] [address] [address] Joseph Barnes MD [address] [place] [address] documented as of this encounter Procedures Procedure Name Priority Date/Time Associated Diagnosis Comments XR TIBIA AND FIBULA RIGHT 2 VIEWS Routine 08/18/2024 11:25 AM EVENT COORDINATOR Status post surgery documented in this encounter Results * XR Tibia and Fibula Right 2 Views (08/18/2024 11:25 AM EVENT COORDINATOR) Anatomical Region Laterality Modality Leg, Knee, Ankle Right Computed Radiog josue Impressions 08/18/2024 3:25 PM EVENT COORDINATOR Impression: 1. Healing osteotomy with mature callus formation in the midshaft of the tibia and fibula. MARY SANCHEZ MD Narrative 08/18/2024 3:25 PM EVENT COORDINATOR 2 views right tibia/fibula radiographs 08/18/2024 3:22 PM History: Status post surgery Comparison: Radiographs dated 06/30/2024 Findings: AP and lateral views of the right tibia/fibula were obtained. Healing osteotomy with mature callus formation in the midshaft of the tibia and fibula. Knee and ankle joints are incompletely assessed but grossly congruent. No significant degenerative changes Soft tissue is unremarkable. Procedure Note Mary Sanchez MD - 08/18/2024 2 views right tibia/fibula radiographs 08/18/2024 3:22 PM History: Status post surgery Comparison: Radiographs dated 06/30/2024 Findings: AP and lateral views of the right tibia/fibula were obtained. Healing osteotomy with mature callus formation in the midshaft of the tibia and fibula. Knee and ankle joints are incompletely assessed but grossly congruent. No significant degenerative changes Soft tissue is unremarkable. Impression: 1. Healing osteotomy with mature callus formation in the midshaft of the tibia and fibula. MARY SANCHEZ MD Joseph Barnes MD IMG DIAGNOSTIC IMAGING ORDERABLES Final Result documented in this encounter Visit Diagnoses Diagnosis Status post surgery documented in this encounter Care Teams Vp Marketing Relationship Specialty Start Date End Date [facility], [address] [address] PCP - General Internal Medicine 10/21/17 Carol Hughes MD [address] [place] [address] Orthopedics 11/23/17 Carol Snider MD [address] [address] Referring Physician Orthopaedic Surgery 11/23/17 Joseph Barnes MD [address] [place] [address] Assigned Musculoskeletal Provider 05/11/23 documented as of this encounter
--- OUTSIDE RECORDS SUMMARY | 2024-08-25 14:05 | XMS_ITS | Encounter Summary ---
Author Organization [place] Address [address] [facility] [place] [address] Care Team Providers Care Train Station Server Name Role Phone [facility] Primary Care Provider Carol Hughes MD Unavailable Carol Snider MD Unavailable [phone] Joseph Barnes MD Unavailable [phone] Reason for Visit * Reason Onset Date Comments Schedule Surgery 03/31/2024 Encounter Details Date Type Department Care Team (Late st Contact Info) Description 03/31/2024 Telephone [facility] [address] [place] [address] Joseph Barnes MD [address] [place] [address] Schedule Surgery Social History Tobacco Use Types Packs/Day Years Used Date Smoking Tobacco: Never Smokeless Tobacco: Never Alcohol Use Standard Drinks/Week Comments No 0 (1 standard drink = 0.6 oz pur e alcohol) PHQ-2 Answer Date Recorded PHQ-2 Score 0 09/24/2023 Adolescent Education Answer Date Record ed Getting School Help Needed Not on file 04/28 Comments Unknown Sex and Gender Information Value Date Recorded Sex Assigned at Not on file Legal Sex Female 4:31 AM SUPERVISOR BENZENE REFINING Gender Identity Not on file Sexual Orientation Not on file documented as of this encounter Miscellaneous Notes * Telephone Encounter - BabatundeMaggie hilton - 03/31/2024 3:44 PM CDT Other: Patient is calling to schedule screw removal surgery with Dr. Barnes. Please call her back. Could we [facility] this [facility] or would you prefer to receive a phone call?: Patient would prefer a phone call Okay to leave a detailed message?: Yes at Cell number on file: Telephone Information: Mobile Not on file. documented in this encounter Plan of Treatment Upcoming Encounters Date Type Department Care Team (Late st Contact Info) Description 11/03/2024 11:10 AM CDT Office Visit [facility] Clinic [address] [phone] Joseph Barnes MD [address] [place] [address] documented as of this encounter Visit Diagnoses Not on filedocumented in this encounter Care Teams Train Station Server Relationship Specialty Start Date End Date Clinic, [address] [address] PCP - General Internal Medicine 10/21/17 Carol Hughes MD [address] [place] [address] Orthopedics 11/23/17 Carol Snider MD [address] [address] Referring Physician Orthopaedic Surgery 11/23/17 Joseph Barnes MD [address] [place] [address] Assigned Musculoskeletal Provider 05/11/23 documented as of this encounter
--- OUTSIDE RECORDS SUMMARY | 2024-08-25 14:05 | XMS_ITS | Encounter Summary ---
Author Organization [place] Address [address] [place] [address] Care Team Providers Care Blasting Worker Name Role Phone Clinic, [facility] Primary Care Provider Carol Hughes MD Unavailable [phone] Carol Snider MD Unavailable [phone] Joseph Barnes MD Unavailable [phone] Reason for Visit * Rehab Therapy Physical Therapy (Priority: 1-2 Weeks) - Pending Review Specialty Diagnoses / Procedures Referred By Contmatteo t Referred To Contact Diagnoses Status post hardware removal Joseph Barnes MD [address] [place] [address] Phone: tel: fax: Referral ID Status Reason Start Date Expiration Date V isits Requested Visits Authorized [id number] Pending Review 06/08/2024 06/08/2025 1 1 Encounter Details Date Type Department Care Team (Latest Contact Info) Description 07/28/2024 8:00 AM PROCESS DEVELOPMENT MANAGER Therapy Visit [facility] Rehabilitation Services [address] 5th [place] [address] Errol Baldwin [facility] [place] [facility] [place] [address] Right leg pain (Primary Dx); Pain in joint, ankle and foot, right; Status post hardware removal Social History Tobacco Use Types Packs/Day Years [...] on file Legal Sex Female 4:31 AM PROCESS DEVELOPMENT MANAGER Gender Identity Not on file Sexual Orientation Not on file documented as of this encounter Plan of Treatment Upcoming Encounters Date Type Department Care Team (Late st Contact Info) Description 11/03/2024 11:10 AM CDT Office Visit [facility] Orthopedic Clinic [address] [phone] Joseph Barnes MD [address] [place] [phone] documented as of this encounter Visit Diagnoses Diagnosis Right leg pain- Primary Pain in limb Pain in joint, ankle and foot, right Status post hardware removal documented in this encounter Care Teams Blasting Worker Relationship Specialty Start Date End Date [facility], [address] [address] PCP - General Internal Medicine 10/21/17 Carol Hughes MD [address] [place] [address] Orthopedics 11/23/17 Carol Snider MD [address] [address] Referring Physician Orthopaedic Surgery 11/23/17 Joseph Barnes MD [address] [place] [address] Assigned Musculoskeletal Provider 05/11/23 documented as of this encounter
--- OUTSIDE RECORDS SUMMARY | 2024-08-25 14:05 | XMS_ITS | Encounter Summary ---
Author Organization [place] Address [address] [facility] [place] [address] Care Team Providers Care Table And Desk Finisher Name Role Phone Clinic, [facility] Primary Care Provider Carol Hughes MD Unavailable [phone] Carol Snider MD Unavailable Joseph Barnes MD Unavailable [phone] Encounter Details Date Type Department Care Team (Late st Contact Info) Description 05/14/2024 [facility] Medical Advice [address] 5th [place] [address] Betsy Cat, STIVEN Social History Tobacco Use Types Packs/Day Years [...] on file Legal Sex Female 4:31 AM CIVIL ENGINEERING DRAFTER Gender Identity Not on file Sexual Orientation Not on file documented as of this encounter Plan of Treatment Upcoming Encounters Date Type Department Care Team (Late st Contact Info) Description 11/03/2024 11:10 AM CDT Office Visit [facility] Orthopedic Clinic [place] [address] [facility] 4th [place] [phone] Joseph Barnes MD [address] [place] [address] documented as of this encounter Visit Diagnoses Not on filedocumented in this encounter Care Teams Table And Desk Finisher Relationship Specialty Start Date End Date Clinic, [address] [address] PCP - General Internal Medicine 10/21/17 Carol Hughes MD [address] [place] [address] Orthopedics 11/23/17 Carol Snider MD [address] [address] Referring Physician Orthopaedic Surgery 11/23/17 Joseph Barnes MD [address] [place] [address] Assigned Musculoskeletal Provider 05/11/23 documented as of this encounter
--- OUTSIDE RECORDS SUMMARY | 2024-08-25 14:05 | XMS_ITS | Encounter Summary ---
Author Organization [place] Address [address] [facility] [place] [address] Care Team Providers Care Foundry Helper Name Role Phone Clinic, [facility] Primary Care Provider Carol Hughes MD Unavailable [phone] Carol Snider MD Unavailable Joseph Barnes MD Unavailable [phone] Encounter Details Date Type Department Care Team (Latest Contact Info) Description 08/07/2024 Travel Social History Tobacco Use Types Packs/Day [...] on file Legal Sex Female 4:31 AM DATA TYPIST Gender Identity Not on file Sexual Orientation Not on file documented as of this encounter Plan of Treatment Upcoming Encounters Date Type Department Care Team (Late st Contact Info) Description 11/03/2024 11:10 AM CDT Office Visit [facility] Orthopedic Clinic [address] [place] [address] Joseph Barnes MD [address] [place] [address] documented as of this encounter Visit Diagnoses Not on filedocumented in this encounter Care Teams Foundry Helper Relationship Specialty Start Date End Date Clinic, [address] [address] PCP - General Internal Medicine 10/21/17 Carol Hughes MD [address] [place] [address] Orthopedics 11/23/17 Carol Snider MD [address] [address] Referring Physician Orthopaedic Surgery 11/23/17 Joseph Barnes MD [address] [place] [address] Assigned Musculoskeletal Provider 05/11/23 documented as of this encounter
--- OUTSIDE RECORDS SUMMARY | 2024-08-25 14:05 | XMS_ITS | Encounter Summary ---
Author Organization [place] Address [address] [place] [address] Care Team Providers Care Work From Home Name Role Phone Clinic, [facility] Primary Care Provider Carol Hughes MD Unavailable [phone] Carol Snider MD Unavailable Joseph Barnes MD Unavailable [phone] Reason for Visit * Rehab Therapy Physical Therapy (Priority: 1-2 Weeks) - Pending Review Specialty Diagnoses / Procedures Referred By Contmatteo t Referred To Contact Diagnoses Status post hardware removal Joseph Barnes MD [address] [place] [address] Phone: tel: fax: Referral ID Status Reason Start Date Expiration Date V isits Requested Visits Authorized [id number] Pending Review 06/08/2024 06/08/2025 1 1 Encounter Details Date Type Department Care Team (Latest Contact Info) Description 08/10/2024 8:40 AM MEDICAL RECORD SPECIALIST Therapy Visit [facility] Rehabilitation Services [address] 5th [place] [address] Errol Baldwin [facility] [place] [address] Right leg pain (Primary Dx); Pain in [...] on file Legal Sex Female 4:31 AM MEDICAL RECORD SPECIALIST Gender Identity Not on file Sexual Orientation Not on file documented as of this encounter Plan of Treatment Upcoming Encounters Date Type Department Care Team (Late st Contact Info) Description 11/03/2024 11:10 AM CDT Office Visit [facility] Clinic [address] [phone] Joseph Barnes MD [address] [place] [phone] documented as of this encounter Visit Diagnoses Diagnosis Right leg pain- Primary Pain in limb Pain in joint, ankle and foot, right Status post hardware removal documented in this encounter Care Teams Work From Home Relationship Specialty Start Date End Date [facility], [address] [address] PCP - General Internal Medicine 10/21/17 Carol Hughes MD [address] [place] [address] Orthopedics 11/23/17 Carol Snider MD [address] [address] Referring Physician Orthopaedic Surgery 11/23/17 Joseph Barnes MD [address] [place] [address] Assigned Musculoskeletal Provider 05/11/23 documented as of this encounter
--- OUTSIDE RECORDS SUMMARY | 2024-08-25 14:05 | XMS_ITS | Encounter Summary ---
Author Organization [place] Address [address] [place] [address] Care Team Providers Care Registered Appraiser Name Role Phone [facility] Primary Care Provider Carol Hughes MD Unavailable [phone] Carol Snider MD Unavailable Joseph Barnes MD Unavailable [phone] Reason for Referral * Diagnostic Imaging XR (Routine) - Pending Review Specialty Diagnoses / Procedures Referred By Bre t Referred To Contact Radiology. Diagnoses Status post surgery Procedures XR Tibia and Fibula Right 2 Views Joseph Barnes MD [address] [place] [address] Phone: tel: fax: Referral ID Status Reason Start Date Expiration Date V isits Requested Visits Authorized [id number] Pending Review 08/04/2024 08/04/2025 1 1 ECTOR WATCH ASSEMBLY Encounter Details Date Type Department Care Team (Late st Contact Info) Description 08/04/2024 Orders Only [facility] [address] [place] [address] Joseph Barnes MD [address] [place] [address] Status post surgery (Primary Dx) Social History Tobacco Use Types Packs/Day Years [...] on file Legal Sex Female 4:31 AM INSPECTOR WATCH ASSEMBLY Gender Identity Not on file Sexual Orientation Not on file documented as of this encounter Plan of Treatment Upcoming Encounters Date Type Department Care Team (Late st Contact Info) Description 11/03/2024 11:10 AM CDT Office Visit [facility] [address] [phone] Joseph Barnes MD [address] [place] [address] documented as of this encounter Results * XR Tibia and Fibula Right 2 Views (08/18/2024 11:25 AM INSPECTOR WATCH ASSEMBLY) Anatomical Region Laterality Modality Leg, Knee, Ankle Right Computed Radiog josue Impressions 08/18/2024 3:25 PM INSPECTOR WATCH ASSEMBLY Impression: 1. Healing osteotomy with mature callus formation in the midshaft of the tibia and fibula. MARY SANCHEZ MD Narrative 08/18/2024 3:25 PM INSPECTOR WATCH ASSEMBLY 2 views right tibia/fibula radiographs 08/18/2024 3:22 [...] this encounter Visit Diagnoses Diagnosis Status post surgery- Primary Status post surgery documented in this encounter Care Teams Registered Appraiser Relationship Specialty Start Date End Date [facility], [address] [address] PCP - General Internal Medicine 10/21/17 Carol Hughes MD [address] [place] [address] Orthopedics 11/23/17 Carol Snider MD [address] [address] Referring Physician Orthopaedic Surgery 11/23/17 Joseph Barnes MD [address] [place] [address] Assigned Musculoskeletal Provider 05/11/23 documented as of this encounter
--- OUTSIDE RECORDS SUMMARY | 2024-08-25 14:05 | XMS_ITS | Encounter Summary ---
Author Organization [place] Address [address] [facility] [place] [address] Care Team Providers Care Certified Ophthalmic Surgical Assistant Name Role Phone [facility] Primary Care Provider Carol Hughes MD Unavailable [phone] Carol Snider MD Unavailable Joseph Barnes MD Unavailable Reason for Visit * Reason Comments RECHECK Follow up right leg. Status post right tibia nail removal with proximal tibia exostosis excision performed on May 20, 2024 Encounter Details Date Type Department Care Team (Late st Contact Info) Description 08/18/2024 11:40 AM RADIOGRAPHER CARDIAC CATHETERIZATION Office Visit [facility] Orth[facility] Clinic [address] [address] Joseph Barnes MD [address] [place] [address] Pain in joint, ankle and foot, right (Primary Dx) Social History Tobacco Use Types [...] on file Legal Sex Female 4:31 AM RADIOGRAPHER CARDIAC CATHETERIZATION Gender Identity Not on file Sexual Orientation Not on file documented as of this encounter Progress Notes * Joseph Barnes MD - 08/18/2024 11:40 AM CST Chief complaint: Status post right tibia IM nail removal with proximal tibia exostosis excision performed on May 20, 2024 Patient presents to the company of her father for further evaluation. Reports to be doing well reports to be making progress but still to have some discomfort across osteotomy site. Denies to have any pain across the knee joint. Continues working with physical therapy On today's visit she presents with a completely unremarkable exam with full range of motion of the knee and ankle. Plain x-rays of the tibia were reviewed today which are significant for showing further consolidation across the osteotomy site. There is further growth across the anterior portion of the tibia. Assessment: Status post right tibia IM nailing with proximal tibia excision Plan: Discussed with patient and her father to continue with activities as tolerated. I counseled her about being careful with pounding activities. Otherwise she has no restrictions. She will follow-up in 3 months from now and at that time 2 views of the right tibia will be obtained. All questions were answered. OGRAPHER CARDIAC CATHETERIZATION documented in this encounter Nursing Notes * Maddison Yuan ATC - 08/18/2024 11:40 AM CST Reason For Visit: Chief Complaint Patient presents with RECHECK Follow up right leg. Status post right tibia nail removal with proximal tibia exostosis excision performed on May 20, 2024 19 year old 2005 Primary MD: Clinic, [facility] There were no vitals taken for this visit. Pain Assessment Patient Currently in Pain: Yes 0-10 Pain Scale: 5 Primary Pain Location: Leg (right) Ankit Yuan ATC OGRAPHER CARDIAC CATHETERIZATION documented in this encounter Plan of Treatment Upcoming Encounters Date Type Department Care Team (Late st Contact Info) Description 11/03/2024 11:10 AM CDT Office Visit [facility] Clinic [address] [place] [address] Joseph Barnes MD [address] [place] [address] documented as of this encounter Visit Diagnoses Diagnosis Pain in joint, ankle and foot, right- Primary documented in this encounter Care Teams Certified Ophthalmic Surgical Assistant Relationship Specialty Start Date End Date [facility], [address] [address] PCP - General Internal Medicine 10/21/17 Carol Hughes MD [address] [place] [address] Orthopedics 11/23/17 Carol Snider MD [id number] [address] Referring Physician Orthopaedic Surgery 11/23/17 Joseph Barnes MD [address] [place] [address] Assigned Musculoskeletal Provider 05/11/23 documented as of this encounter
--- OUTSIDE RECORDS SUMMARY | 2024-08-25 14:05 | XMS_ITS | Encounter Summary ---
Author Organization [place] Address [address] [place] [address] Care Team Providers Care Policy Analyst Name Role Phone Clinic, [facility] Primary Care Provider Carol Hughes MD Unavailable [phone] Carol Snider MD Unavailable Joseph Barnes MD Unavailable [phone] Encounter Details Date Type Department Care Team (Late st Contact Info) Description 06/08/2024 [facility] [address] 4th [place] [address] Halie Sanders ATC Social History Tobacco Use Types Packs/Day Years [...] on file Legal Sex Female 4:31 AM DEVELOPMENT TECHNOLOGIST Gender Identity Not on file Sexual Orientation Not on file documented as of this encounter Plan of Treatment Upcoming Encounters Date Type Department Care Team (Late st Contact Info) Description 11/03/2024 11:10 AM CDT Office Visit [facility] [address] [place] [phone] Joseph Barnes MD [address] [place] [address] documented as of this encounter Visit Diagnoses Not on filedocumented in this encounter Care Teams Policy Analyst Relationship Specialty Start Date End Date Clinic, [address] [address] PCP - General Internal Medicine 10/21/17 Carol Hughes MD [address] [place] [address] Orthopedics 11/23/17 Carol Snider MD [id number] [address] Referring Physician Orthopaedic Surgery 11/23/17 Joseph Barnes MD [address] [place] [id number] Assigned Musculoskeletal Provider 05/11/23 documented as of this encounter
--- OUTSIDE RECORDS SUMMARY | 2024-08-25 14:05 | XMS_ITS | Encounter Summary ---
Author Organization [place] Address [address] [facility] [place] [address] Care Team Providers Care Membership Secretary Name Role Phone Clinic, [facility] Primary Care Provider Carol Hughes MD Unavailable [phone] Carol Snider MD Unavailable Joseph Barnes MD Unavailable [phone] Encounter Details Date Type Department Care Team (Latest Contact Info) Description 08/18/2024 Travel Social History Tobacco Use Types Packs/Day [...] on file Legal Sex Female 4:31 AM SENIOR BEHAVIORAL SCIENTIST Gender Identity Not on file Sexual Orientation Not on file documented as of this encounter Plan of Treatment Upcoming Encounters Date Type Department Care Team (Late st Contact Info) Description 11/03/2024 11:10 AM CDT Office Visit [facility] [address] [place] [address] Joseph Barnes MD [address] [place] [id number] documented as of this encounter Visit Diagnoses Not on filedocumented in this encounter Care Teams Membership Secretary Relationship Specialty Start Date End Date Clinic, [address] [address] PCP - General Internal Medicine 10/21/17 Carol Hughes MD [address] [place] [id number] Orthopedics 11/23/17 Carol Snider MD [address] [address] Referring Physician Orthopaedic Surgery 11/23/17 Joseph Barnes MD [address] [place] [id number] Assigned Musculoskeletal Provider 05/11/23 documented as of this encounter
--- OUTSIDE RECORDS SUMMARY | 2024-08-25 14:05 | XMS_ITS | Encounter Summary ---
Author Organization [place] Address [address] [facility] [place] [address] Care Team Providers Care Heat Treatment Technician Name Role Phone Clinic, [facility] Primary Care Provider Carol Hughes MD Unavailable Carol Snider MD Unavailable [phone] Joseph Barnes MD Unavailable Encounter Details Date Type Department Care Team (Late st Contact Info) Description 04/01/2024 [facility] Medical Advice [facility] [address] [place] [address] Amber Lofton RN Social History [...] on file Legal Sex Female 4:31 AM ROOFING TECHNICIAN Gender Identity Not on file Sexual Orientation Not on file documented as of this encounter Plan of Treatment Upcoming Encounters Date Type Department Care Team (Late st Contact Info) Description 11/03/2024 11:10 AM CDT Office Visit [facility] [place] [id number] [facility] 4th [place] [phone] Joseph Barnes MD [address] [place] [id number] documented as of this encounter Visit Diagnoses Not on filedocumented in this encounter Care Teams Heat Treatment Technician Relationship Specialty Start Date End Date Clinic, [address] [address] PCP - General Internal Medicine 10/21/17 Carol Hughes MD [address] [place] [address] Orthopedics 11/23/17 Carol Snider MD [address] [address] Referring Physician Orthopaedic Surgery 11/23/17 Joseph Barnes MD [address] [place] [id number] Assigned Musculoskeletal Provider 05/11/23 documented as of this encounter
--- OUTSIDE RECORDS SUMMARY | 2024-08-25 14:05 | XMS_ITS | Data Portability ---
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 Improving motion. PLAN: iontophoresis . Assess tongue depressor stretch. [email or web address] Not available 12/18/2022 13:03:45 12/20/2022 12/20/2022 Improving pain levels, for the most part careful with foods. PLAN: reassess IO and mobilization NEXT visit. [email or web address] Not available 12/20/2022 11:08:30 12/25/2022 12/25/2022 PLAN: mobilizati on and td stretch NEXT visit. [email or web address] Not available 12/25/2022 16:25:55 12/25/2022 12/25/2022 I spent a considerable amount of time with the patient discussing their past medical and personal history, as well as performing a physical examination which is documented in it's entirety in the electronic health record. We discussed the above diagnoses and contributing factors including bruxism. I discussed the benefits and risks as well as the limitations, goals and prognosis of their current treatment plan as well as the need for compliance with the home based self care treatments. I stressed that I thought they had a fair prognosis for their ability to manage their symptoms if they are compliant with their treatment plan. I reviewed self care and the relaxation technique for their jaw and head. I reinforced the need for them to do these and their home exercise program on a daily basis . Today her mandibular stabilization appliance did not need adjustment. She will follow up with the physical therapist and implementation of head and jaw exercises and modalities as indicated including left TMJ iontophoresis of steroids (4 mg/ml) dexamethasone sodium phosphate - 32 cc's and mobilization of her jaw. Today I manipulated her jaw from 35 to 40 mm of inter-incisal opening. We previously discussed getting and evaluation with the health coaches via the PACT program to assess for and manage any risk factors for her condition to become chronic. This would complement for her ongoing treatment with her therapist and with medication for her anxiety - the latter is also may be contributing to her bruxism problem. The patient wants to wait on this. She is using trazadone or cyclobenzaprine at bedtime or a half a dose of both at bedtime, prn at HS. Next visit will discuss the possible use of another Medrol dose pack depending how she's doing. I told the patient to see me in 4 weeks to check their splint, jaw and occlusion. I will also likely manipulate her jaw that day. I told the patient to discontinue using the splint if they are not back to see me at that time. I also told them to see me sooner if their jaw symptoms increase or they perceive a change in the way their teeth touch or fit. Please contact me if you want to discuss my management of your patient. Thank you for this referral. I spent 30 minutes reviewing the PT and my notes, as well reviewing the findings from the TMJ MRIs. I also edited a separately obtained history. I also reviewed the diagnoses, contributing factors, and treatment plan, and the patient has diagnoses they would like to address with the proposed treatment plan. I referred them to another health career developer. I did a procedure - I manipulated her jaw today. Expectations, risks and complications of treatment/no treatment were discussed. The patient s prognosis is good. This case is moderate in complexity because of prior pain history, multiple diagnoses, significant functional impact and high distress (i.e., anxiety). Poor somatic awareness complicates rehabilitation, effective self care and pain management. Risk of complications include moderate to high distress. They have 4 chronic conditions that I am addressing. Finally, I documented the clinical information in the electronic health record. [email or web address] Not available 12/25/2022 17:11:31 12/27/2022 12/27/2022 Improving pain. Improving mobility. Much improved JFLS 120/200 to 44/200. PLAN: See when returns from work trip. Contine with ex and self cares. Possibly 1 more iontophoresis. [email or web address] Not available 12/27/2022 12:55:45 Plan of Treatment Reminders Order Date Submit Date Provider Last Modified By Organization Details Last Modified Time Details Appointments None record ed. Lab None record ed. Referral None record ed. Procedures None record ed. Surgeries None record ed. Imaging None record ed. Medication Orders None record ed. Patient TargetsNo targets recorded. Patient InstructionsNo instructions recorded. Reason for Referral None Reported. Results Created Date Observation Date Name Description Value Unit Range Abnormal Flag Note LastModifiedBy Organization Detail LastModifiedTime 11/21/1911/20/2022 CT, tempo ral bone, w/o contr ast No observ ation record ed. [address] [place], [address], 11/20/2022 19:00:14 12/04/19 CT, tempo ral bone, w/o contr ast No observ ation record ed. [address] [place], [address], 12/12/2022 12:29:37 Result Notes None recorded. 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 3355854166733 9104 Active 2022 Wilbert Acuña DDS [address], [place], [address], [facility] 3 11:11:49 Myofascial pain 140948159 Active 2022 Wilbert Acuña DDS [address], [place], [address], [facility] 3 18:17:07 Bruxism 794592264 Active 2022 Wilbert Acuña DDS [address], [place], [address], [facility] 3 18:17:48 Arthralgia of temporomand ibular joint 57554362 Active 2022 Wilbert Acuña DDS [address], [place], [address], [facility] 3 18:17:01 Episodic tension-typ e headache 622674107 Active 2022 Wilbert Acuña DDS [address], [place], [address], [facility] 3 15:17:31 Bilateral temporomand ibular joint arthritis 7108322180374 9103 Active 2022 Wilbert Acuña DDS [address], [place], [address], [facility] 3 18:30:47 Problem Notes None recorded. Procedures Surgical History Date Name Laterality Status Provider Name and Address Organization Details Recorded Time 12/28/19 23 22398: Iontophoresis completed GABBY Kaiser [address], [place], [address], [facility] 12/27/2022 12:53:13 12/28/19 23 15540: Therapeutic Exercise completed GABBY Kaiser [address], [place], [address], [facility] 12/27/2022 12:53:16 12/26/19 23 74077: Iontophoresis completed GABBY Kaiser [address], [place], [address], [facility] 12/25/2022 16:25:29 12/21/19 23 41969: Iontophoresis completed GABBY Kaiser [address], [place], [address], [facility] 12/20/2022 11:09:40 12/19/19 23 73956: Iontophoresis completed GABBY Kaiser [address], [place], [address], [facility] 12/18/2022 13:03:20 12/14/19 02735: Iontophoresis completed GABBY Kaiser [address], [place], [address], [facility] 12/13/2022 13:04:57 12/12/19 23 83033: Iontophoresis completed GABBY Kaiser [address] [facility] [address], [place], [address], [facility] 12/11/2022 13:01:30 12/12/19 23 Oral appliance completed Wilbert Acuña DDS [address] [facility] [address], [place], [address], [facility] 12/11/2022 18:16:19 12/07/19 23 45658: Iontophoresis completed GABBY Kaiser [address], [place], [address], [facility] 12/25/2022 15:47:45 11/21/[address] TMJ completed Nisha Urban [facility] 11/20/2022 09:41:07 11/21/19 23 99063 - PT Eval Moderate Complexity completed GABBY Kaiser [address], [place], [address], [facility] 11/20/2022 14:28:45 11/21/19 23 72496: Therapeutic Exercise completed Naye Chávez, SOILAT [address] [facility] [address], [place], [address], [place] [facility] 11/20/2022 14:28:35 11/21/19 23 34254: Neuromuscular Re-Education completed Naye Chávez, SOILAT [address] [facility] [facility] [address], [place], [address], [facility] 11/20/2022 14:28:38 Tonsillectomy completed Nisha Urban [facility] 10/30/2022 10:01:31 Other completed Nisha FENG [facility] 10/30/2022 10:01:31 [place] Teeth Extraction completed Nisha Urban [facility] 10/30/2022 10:01:31 ENT/Sinus Surgery completed Nisha rivero [facility] 10/30/2022 10:01:31 Imaging Results Imaging Date Name Status LastModified by Organiz ation Details LastModified Time 11/20/2022 CT, temporal bone, w/o contrast completed [address] [place], [address], 11/20/2022 19:00:14 12/03/2022 CT, temporal bone, w/o contrast completed [place] [address] [facility] [address] [place], [address], 12/12/2022 12:29:37 Procedure Notes None recorded. Medical Equipment None Reported. Allergies Allergen ID Allergen Name Allergen Category Reaction Reaction Severity Criticality Documentation Date Start Date Code Code System Note Provider Name and Address Organization Details Recorded Time 60809 doxycycli ne Not available Not available Not available Not available 10/30/2022 3640 RxNorm Nisha terry [facility] 10:01:07 Medications Name Sig Start Date Stop Date Status Note LastModified by Organization Details LastModified Time fluoxetine 40 mg capsule TAKE 1 CAPSULE BY MOUTH ONCE DAILY active Not Available Not Available No t Available cyclobenzap rine 10 mg tablet TAKE 1 TABLET BY MOUTH NEEDED AT BEDTIME FOR 21 DAYS active Not Available Not Available No t Available trazodone 50 mg tablet TAKE 1 & 1/2 (ONE & ONE-HALF) TABLETS BY MOUTH ONCE DAILY active Not Available Not Available No t Available dexamethaso ne sodium phosphate 4 mg/mL injection solution BRING VIAL WITH TO PHYSICAL THERAPY FOR 10 VISITS active Not Available Not Available No t Available methylpredn isolone 4 mg tablets in a dose pack USE DIRECTED ON PACKAGE INSTRUCTI ONS 12/11 completed Not Available Not Available Not Available fluoxetine 20 mg capsule TAKE 1 CAPSULE BY MOUTH ONCE DAILY 10/24 completed Not Available Not Available Not Available sertraline 50 mg tablet TAKE 1/2 TABLET BY MOUTH DAILY FOR 1 WEEK, THEN INCREASE TO 1 TABLET DAILY 10/24 completed Not Available Not Available Not Available amoxicillin 875 mg-potassiu m clavulanate 125 mg tablet TAKE 1 TABLET BY MOUTH TWICE DAILY FOR 5 DAYS 10/24 completed Not Available Not Available Not Available Ventolin HFA 90 mcg/actuati on aerosol inhaler INHALE 1 PUFF BY MOUTH EVERY 6-8 HOURS NEEDED FOR SHORTNESS OF BREATH/WH EEZING active Not Available Not Available No t Available Vitals Date Recorded Body height Body mass index (BMI) Percentile per age and sex Body mass index (BMI) Body weight Heart rate Systolic blood pressure Diastolic blood pressure Provider Name and Address Organization Details Last Updated DateTime 3 162.56 cm 66 % 23.2 kg/m2 61889.9 7 g 76 /min 91 mm[Hg] 60 mm[Hg] Nisha Urban [facility] 3 15:06:53 Social History Question Answer Notes LastModified by Organizat ion Details LastModified Time Tobacco Smoking Status Never Smoker JUNG Hernandez [facility] 10/30/2022 10:01:27 What Is Your Level Of Alcohol Consumption? None Information not available 10/30/2022 What Is Your Level Of Caffeine Consumption? Occasional 90 Mg Caffeine Per Day Information not available 11/20/2022 Are You Currently Employed? Yes Information not available 10/30/2022 What Type Of Diet Are You Following? REGULAR Information not available 10/30/2022 Do You Reside In Or Have You Traveled To An Area Where Ebola Virus Transmission Is Active? No Information not available 10/30/2022 What Is The Highest Grade Or Level Of School You Have Completed Or The Highest Degree You Have Received? [id number] Information not available 10/30/2022 How Many Children Do You Have? 0 Information not available 10/30/2022 Do You Feel Stressed (tense, Restless, Nervous, Or Anxious, Or Unable To Sleep At Night)? [id number] Information not available 10/30/2022 Do You Use Any Illicit Or Recreational Drugs? No Information not available 10/30/2022 How Many Years Have You Smoked Tobacco? 0 Information not available 10/30/2022 Sex: Unknown Functional Status Question Answer Note LastModified by Organizat ion Details LastModified Time What is your exercise level? Moderate HOBBIES: weight lifts 5x/day, water [place] 2x/week; Information not available 11/20/2022 Mental Status None recorded. Family History Relationship Description Onset Age of this Age Resolved Age Notes LastModified by Organization Details LastModified Time Mother Depressive disorder [email or web address] Not available 10/30 10:01:11 Medical History Condition Response Anxiety Disorder Y Migraines Y Gynecological HistoryNo gynecological history recorded. 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 Tooth #14 Bruxism 166984563 F45.8 [id number] GABBY Kaiser [address] [address] 11/20/2022 13:33:00 11/20/2022 14:19:27 Arthralgia of temporomandibular joint 32278757 M26.622 Articular disc disorder of left temporomandibular joint 7965486512 0397911 M26.632 Myofascial pain 91957153 9 M79.11 Articular disc disorder of temporomandibular joint 65473752 M26.632 Left TMJ closed lock Symptomati c irreversible pulpitis 474293395 K04.02 Tooth #14 Bruxism 057832587 F45.8 [id number] Wilbert Acuña [address] [address] 11/20/2022 13:33:25 11/20/2022 15:01:40 Articular disc disorder of left temporomandibular joint 6224428665 2491440 M26.632 Left closed lock Bruxism 035925348 F45.8 Myofascial pain 97101284 9 M79.11 Arthralgia of temporomandibular joint 16269491 M26.622 Episodic t ension-type headache 023713894 G44.219 Related to her neck - not jaw. DC helps. [id number] Wilbert Acuña [address] [address] 12/11/2022 10:26:46 12/11/2022 11:04:11 Articular disc disorder of left temporomandibular joint 2092152997 4736709 M26.632 Left closed lock Bruxism 653155921 F45.8 Episodic t ension-type headache 975160442 G44.219 Related to her neck - not jaw. DC helps. Bilateral temporomandibular joint arthritis 6571657766 3754783 M26.643 Arthralgia of temporomandibular joint 75857095 M26.622 Myofascial pain 18811181 9 M79.11 [id number] Naye Chávez, [address] [address] 12/06/2022 14:31:47 12/06/2022 15:03:32 Arthralgia of temporomandibular joint 22153911 M26.622 Articular disc disorder of left temporomandibular joint 9078506591 7060966 M26.632 Myofascial pain 62217658 9 M79.11 Articular disc disorder of temporomandibular joint 32785434 M26.632 Left TMJ closed lock Episodic t ension-type headache 891822207 G44.219 [id number] Naye Chávez, [address] [address] 12/11/2022 10:27:29 12/11/2022 11:29:56 Arthralgia of temporomandibular joint 01686422 M26.622 Articular disc disorder of left temporomandibular joint 0298235612 8702832 M26.632 Myofascial pain 81403041 9 M79.11 Articular disc disorder of temporomandibular joint 06396583 M26.632 Left TMJ closed lock [id number] Naye Chávez[address] [address] 12/13/2022 10:29:43 12/13/2022 11:39:55 Arthralgia of temporomandibular joint 76391624 M26.622 Articular disc disorder of left temporomandibular joint 0932961849 4029364 M26.632 Bilateral temporomandibular joint arthritis 8369798281 4713228 M26.643 Myofascial pain 26382872 9 M79.11 Episodic t ension-type headache 629640386 G44.219 [id number] Naye Chávez, [address] [address] 12/18/2022 11:04:45 12/18/2022 11:35:52 Arthralgia of temporomandibular joint 97779470 M26.622 Articular disc disorder of left temporomandibular joint 8374509927 3612814 M26.632 Bilateral temporomandibular joint arthritis 9583019358 9491944 M26.643 Myofascial pain 63845003 9 M79.11 Episodic t ension-type headache 026390381 G44.219 [id number] Naye Chávez, [address] [address] 12/20/2022 10:26:38 12/20/2022 11:01:38 Arthralgia of temporomandibular joint 33111512 M26.622 Articular disc disorder of left temporomandibular joint 3891897726 9496427 M26.632 Bilateral temporomandibular joint arthritis 5953094938 7658256 M26.643 Myofascial pain 65201005 9 M79.11 [id number] Wilbert Acuña, [address] [address] 12/25/2022 15:00:57 12/25/2022 15:35:19 Articular disc disorder of left temporomandibular joint 1633895694 6684892 M26.632 Left closed lock Bilateral temporomandibular joint arthritis 2172843031 3644203 M26.643 Arthralgia of temporomandibular joint 21277784 M26.622 Myofascial pain 74500261 9 M79.11 Episodic t ension-type headache 588878115 G44.219 Related to her neck - not jaw. DC helps. Bruxism 238030868 F45.8 [id number] Naye Chávez, [address] [address] 12/25/2022 15:01:12 12/25/2022 16:09:30 Arthralgia of temporomandibular joint 93082014 M26.622 Articular disc disorder of left temporomandibular joint 5391785516 8701507 M26.632 Bilateral temporomandibular joint arthritis 1952140662 9244536 M26.643 Myofascial pain 49696022 9 M79.11 [id number] GABBY Kaiser [address] [address] 12/27/2022 11:56:49 12/27/2022 12:20:21 Arthralgia of temporomandibular joint 66537821 M26.622 Articular disc disorder of left temporomandibular joint 3394049987 4338083 M26.632 Bilateral temporomandibular joint arthritis 0768070316 0286714 M26.643 Myofascial pain 47975746 9 M79.11 Health Concerns Section Related Observation LastModified by Organization Detai ls LastModified Time None Recorded Concern Status LastModified by Organization Details LastModified Time None Recorded Advance Directives Directive None Recorded Payers Encounter Date Sequence Insurance Name Policy Number Policy Dobbs Covered Member ID Dobbs Member ID Guarantor Name 12/18/2022 1 [employer] [id number] Edmund Katelyn [id number] [facility] 12/20/2022 [employer] [id number] Edmund Katelyn [id number] [facility] 12/25/2022 [employer] [id number] Edmund Katelyn [id number] [facility] 12/25/2022 [employer] [id number] Edmund Katelyn [id number] [facility] 12/27/2022 [employer] [id number] Edmund Lodi [id number] [facility] Notes Date Note Type Note Provider Name and Address Organization Details Recorded Time text/html Jaw painReported bypatient.Location:left; masseter; TMJ Quality:aching; daily constant ache that increases with jaw movement and eating. Severity:pain level 0-4/10 Duration and frequencyconstant Context:no known trigger Aggravating/contribution factors:grinding teeth; clenching the teeth; yawning; wide mouth opening; dental work; chewing; crunchy foods; chewy foods; symptoms vary with time of day PM; Worse when she wakes up. Alleviating Factors:NSAIDs; acetaminophen; heat; soft foods; splint therapy; exercise; physical therapy; relaxation techniques Associated Symptoms:no jaw clicking; no jaw popping;jaw locks closed left; Had jaw joint noises in the past but not since she locked Prior Tests:None. Prior Treatment:None Prior opiniondentist Symptoms statusimprovedHeadache - shortReported bypatient.Location:bilatera l; temporal; including neck; occipital; Starts in posterior neck. Quality:aching Severity:moderate; pain level 0-7/10 Duration:2x/week Onset/Timing:gone now Context:not related to trauma;family history of migraine headaches Aggravating factors:Poor posture at work. 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 Alleviating factors:stretching; Chiropractic treatment 1x/week and daily stretching of her neck helps with headaches and neck pain. Associated Symptoms:no vomiting; no sensitivity to light; No sensitivity to noise - rare. Patient presents today for follow-up. They report jaw symptoms which are {{improved* stable chronic worsened unchanged flared r esolved}} since the previous visit. Symptoms and pertinent information along with prior data was reviewed, updated and documented in the patient history of present illness. Patient rates the pain intensity as {{0 1 2 3 4 5 6 7 8 9 10 0- 4#}} on a scale of 0 to 10. Patient is {{engaged in* not engaged in partially engaged in completed discontinued}} active treatment at this time. Erica states she wears her splint every night, she does wake up around 2 am and she takes it out most nights - occasionally she wears it through the night. She has been wearing it during the day as well. She states she is not as sore in the mornings as before. She is seeing the PT and the jaw stretches help a lot. Overall, her jaw pain has decreased a lot especially with no longer getting sharp pains. No change in headaches but she has a chiropractor that treats her neck and headaches. No tooth pain. Wilbert Acuña, LALOS [address] [facility] [address], [place], [address], [facility] 12/25/2022 17:13:36 OBGyn Episode No OBEpisode recorded.
--- OUTSIDE RECORDS SUMMARY | 2024-08-25 14:05 | XMS_ITS | Encounter Summary ---
Author Organization [place] Address [address] [facility] [place] [address] Care Team Providers Care Commercial Makeup Artist Name Role Phone Clinic, [facility] Primary Care Provider Carol Hughes MD Unavailable [phone] Carol Snider MD Unavailable Joseph Barnes MD Unavailable [phone] Encounter Details Date Type Department Care Team ([facility] st Contact Info) Description 07/06/2024 Result Follow Up [facility] [place] [facility] Services - Musculoskeletal Service Line [address] [place] [phone] Joseph Barnes MD [address] [place] [place] [address] [phone] Social History Tobacco Use Types Packs/Day Years [...] on file 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 Gender Identity Not on file Sexual Orientation Not on file documented as of this encounter Plan of Treatment Upcoming Encounters Date Type Department Care Team (Late st Contact Info) Description 11/03/2024 11:10 AM CDT Office Visit [facility] [address] [place] [phone] Joseph Barnes MD [address] [place] [address] documented as of this encounter Visit Diagnoses Not on filedocumented in this encounter Care Teams Commercial Makeup Artist Relationship Specialty Start Date End Date Clinic, [address] [address] PCP - General Internal Medicine 10/21/17 Carol Hughes MD [address] [place] [address] Orthopedics 11/23/17 Carol Snider MD [address] [address] Referring Physician Orthopaedic Surgery 11/23/17 Joseph Barnes MD [address] [place] [address] Assigned Musculoskeletal Provider 05/11/23 documented as of this encounter
--- OUTSIDE RECORDS SUMMARY | 2024-08-25 14:05 | XMS_ITS | Encounter Summary ---
Author Organization [place] Address [address] [place] [address] Care Team Providers Care Sanitizer Name Role Phone Clinic, [facility] Primary Care Provider Carol Hughes MD Unavailable [phone] Carol Snider MD Unavailable [phone] Joseph Barnes MD Unavailable [phone] Encounter Details Date Type Department Care Team (Latest Contact Info) Description 07/17/2024 8:00 AM APPLICATION INTERNSHIP Therapy Visit [facility] Rehabilitation Services [address] [place] [address] Joseph Barnes MD [address] [place] [address] [phone] Errol Baldwin [facility] [place], [place] [phone] Right leg pain (Primary Dx); Pain in [...] on file Legal Sex Female 4:31 AM APPLICATION INTERNSHIP Gender Identity Not on file Sexual Orientation Not on file documented as of this encounter Plan of Treatment Upcoming Encounters Date Type Department Care Team (Late st Contact Info) Description 11/03/2024 11:10 AM CDT Office Visit [facility] [address] [phone] Joseph Barnes MD [address] [place] [address] [phone] documented as of this encounter Visit Diagnoses Diagnosis Right leg pain- Primary Pain in limb Pain in joint, ankle and foot, right Status post hardware removal documented in this encounter Care Teams Sanitizer Relationship Specialty Start Date End Date Clinic, [address] [phone] PCP - General Internal Medicine 10/21/17 Carol Hughes MD [address] [place] [address] [phone] Orthopedics 11/23/17 Carol Snider MD [address] [address] Referring Physician Orthopaedic Surgery 11/23/17 Joseph Barnes MD [address] [place] [address] Assigned Musculoskeletal Provider 05/11/23 documented as of this encounter
--- OUTSIDE RECORDS SUMMARY | 2024-08-25 14:06 | XMS_ITS | Clinical Summary ---
Author Organization [place] Address [address] [place] [address] Care Team Providers Care Chocolate Refining Roller Name Role Phone Clinic, [facility] Primary Care Provider Carol Hughes MD Unavailable [phone] Carol Snider MD Unavailable Joseph Barnes MD Unavailable [phone] Allergies Active Allergy Reactions Criticality Noted Date Comments Doxycycline Nausea,Nausea and Vomiting Low 09/10/19 23 Medications albuterol (PROAIR HFA/PROVENTIL HFA/VENTOLIN HFA) 108 (90 Base) MCG/ACT inhaler Inhale 2 puffs into the lungs every 6 hours as needed Active FLUoxetine (PROZAC) 40 MG capsule Take 1 capsule by mouth daily Active traZODone (DESYREL) 50 MG tablet Take 100 mg by mouth at bedtime Active HYDROcodone-deja taminophen (NORCO) 5-325 MG tabletIndicatio ns:Right leg pain Take 1-2 tablets by mouth every 4 hours as needed for moderate to severe pain. 15 tablet Active Additional Information Patient not taking.Reported on 08/18/2024 hydrOXYzine HCl (ATARAX) 25 MG tabletIndicatio ns:Right leg pain Take 1 tablet (25 mg) by mouth 3 times daily as needed for itching, anxiety or other (pain). 15 tablet Active Active Problems Problem Noted Date Diagnosed Date Status post hardware removal 06/09/2024 Pain in joint, ankle and foot, right 04/30/2024 Right leg pain 08/07/2023 Post-op pain 03/05/2018 Resolved Problems Problem Noted Date Diagnosed Date Resolved Date Pain in joint involving ankle and foot, left 8 05/13/2019 Aftercare following surgery of the musculoskeletal system 06/04/2018 05/13/2019 Left knee pain 12/03/2017 05/13/2019 Encounters Date Type Department Care Team Description 08/18/2024 11:40 AM PROFESSIONAL ATHLETE Office Visit [facility] [address] [place] [address] Joseph Barnes MD Pain in joint, ankle and foot, right (Primary Dx) 08/18/2024 11:30 AM PROFESSIONAL ATHLETE Ancillary Procedure [facility] Xray [address] [place] [address] Joseph Barnes MD Status post surgery 08/18/2024 Travel 08/10/2024 8:40 AM PROFESSIONAL ATHLETE Therapy Visit [address] [place] [address] Briard, Errol Right leg pain (Primary Dx); Pain in joint, ankle and foot, right; Status post hardware removal 08/10/2024 Travel 08/07/2024 Travel 08/04/2024 Orders Only [facility] [address] [place] [address] Joseph Barnes MD Status post surgery (Primary Dx) 07/28/2024 8:00 AM PROFESSIONAL ATHLETE Therapy Visit [address] [place] [address] Briard, Errol Right leg pain (Primary Dx); Pain in joint, ankle and foot, right; Status post hardware removal 07/28/2024 Travel 07/17/2024 8:00 AM PROFESSIONAL ATHLETE Therapy Visit [address] [place] [address] Joseph Barnes MD Briard, Lance Right leg pain (Primary Dx); Pain in joint, ankle and foot, right; Status post hardware removal 07/17/2024 Travel 07/10/2024 Telephone [facility] [address] [place] [address] Joseph Barnes MD 07/06/2024 Result Follow Up [facility] Musculoskeletal Service Line [address] [place] [phone] Joseph Barnes MD 06/30/2024 2:00 PM PROFESSIONAL ATHLETE Ancillary Procedure [facility] [address] [place] [address] Joseph Barnes MD Status post hardware removal; Status post surgery; Post-op pain 06/30/2024 12:00 PM PROFESSIONAL ATHLETE Office Visit [facility] [address] [place] [address] Joseph Barnes MD Status post hardware removal (Primary Dx); Status post surgery; Post-op pain 06/30/2024 11:50 AM PROFESSIONAL ATHLETE Ancillary Procedure [facility] Xray [address] [place] [address] Joseph Barnes MD Status post hardware removal 06/30/2024 Travel 06/29/2024 Travel 06/26/2024 Orders Only [facility] [address] [place] [address] Joseph Barnes MD Status post hardware removal (Primary Dx) 06/17/2024 10:40 AM PROFESSIONAL ATHLETE Therapy Visit M [address] [place] [address] Errol Baldwin Right leg pain (Primary Dx); Pain in joint, ankle and foot, right; Status post hardware removal 06/17/2024 Travel 06/16/2024 Travel 06/09/2024 1:50 PM PROFESSIONAL ATHLETE Therapy Visit [address] [place] [phone] Joseph Barnes MD Briard, Lance Right leg pain (Primary Dx); Status post hardware removal; Pain in joint, ankle and foot, right 06/09/2024 Travel 06/08/2024 11:00 AM PROFESSIONAL ATHLETE Office Visit [facility] [address] [phone] Nurse, Valentina U Orth[facility] Status post hardware removal (Primary Dx) 06/08/2024 MyC Medical Advice [facility] [address] [phone] Halie Sanders ATC 06/08/[address] [phone] Joseph Barnes MD Call Back (pain) 06/08/2024 Travel 06/07/2024 Travel from Last 3 Months Social History Tobacco [...] on file Legal Sex Female 4:31 AM PROFESSIONAL ATHLETE Gender Identity Not on file Sexual Orientation Not on file Last Filed Vital Signs Vital Sign Reading Time Taken Comments Blood Pressure 100/64 05/20/2024 5:00 PM PROFESSIONAL ATHLETE Pulse 73 05/20/2024 5:00 PM PROFESSIONAL ATHLETE Temperature 36.4 C (97.6 F) 05/20/2024 5:00 PM PROFESSIONAL ATHLETE Respiratory Rate 19 05/20/2024 5:00 PM PROFESSIONAL ATHLETE Oxygen Saturation 98% 05/20/2024 5:00 PM PROFESSIONAL ATHLETE Inhaled Oxygen Concentration - - Weight 61.2 kg (135 lb) 05/20/2024 8:08 AM PROFESSIONAL ATHLETE Height 162.6 cm (5' 4) 05/20/2024 8:08 AM PROFESSIONAL ATHLETE Body Mass Index 23.17 05/20/2024 8:08 AM PROFESSIONAL ATHLETE Plan of Treatment Upcoming Encounters Date Type Department Care Team (Late st Contact Info) Description 11/03/2024 11:10 AM CDT Office Visit [facility] [address] [place] [address] Joseph Barnes MD [address] [place] [address] Health Maintenance Due Date Last Done Comments ADVANCE CARE PLANNING 2003 ANNUAL REVIEW OF HM ORDERS 2003 CHLAMYDIA SCREENING 2003 YEARLY PREVENTIVE VISIT 2006 HIV SCREENING 2018 HEPATITIS C SCREENING 2021 MENINGITIS B IMMUNIZATION (2 of 2 - Bexsero SCDM 2-dose series) 08/23/2022 02/20/2022 COVID-19 Vaccine ( season) 2024 08/15/2021, 10/25/2020, 10/08/2020 INFLUENZA VACCINE (#1) 2024 , 05/01/2019, 06/10/2009, Additional history exists PAP 2024 DTAP/TDAP/TD IMMUNIZATION (7 - Td or Tdap) 08/30/2024 08/30/2014, 08/30/2014, 03/10/2008, Additional history exists ZOSTER IMMUNIZATION (1 of 2) 2053 HEPATITIS B IMMUNIZATION Completed 004, 2003, 2003 Pneumococcal Vaccine: Pediatrics (0 to 5 Years) and At-Risk Patients (6 to 49 Years) Aged Out 09/08/2004, 03/09/2004, 2003, Additional history exists No longer eligible based on patient's age to complete this topic HPV IMMUNIZATION Completed 03/11/2015, , 08/30/2014 MENINGITIS IMMUNIZATION Completed 05/16/20, 08/30/2014, 01/19/2004 PHQ-2 (once per calendar year) Completed 08/18/2024, 09/24/2023, 05/07/2023, Additional history exists Medical Devices Implanted Type Area Rags Laborer Device Identifier Shelf Expiration Date Model / Serial / Lot Tibial Nail Implanted:Qty: 1 on 03/05/2018 by Joseph Barnes MD at [facility] Left: Tibia 09/11/2026 47-2495-34 0- [id number] 5.0 Cortical Screw Implanted:Qty: 1 on 03/05/2018 by Joseph Barnes MD at [facility] Left: Tibia MALCOLM 06/13/2027 47-2484-04 0-50 / / [id number] 5.0 Cortical Screw Implanted:Qty: 1 on 03/05/2018 by Joseph Barnes MD at [facility] Left: Tibia 10/12/2026 47-2484-03 2-50 / / [id number] Malcolm Natural Nail Tibial Nail 9.3 Mm Yellow Implanted:Qty: 1 on 08/07/2023 by Joseph Barnes MD at [facility] Right: Leg MALCOLM [id number] 04/29/2032 47-249 5-32 0- [id number] Malcolm Natural Nail 5.0 Mm Cortical Screw 27.5 Mm Implanted:Qty: 1 on 08/07/2023 by Joseph Barnes MD at [facility] Right: Leg MALCOLM [id number] 05/14/2027 47-248 4-02 50 / [id number] Malcolm Natural Nail 5.0 Mm Cortical Screw 37.5mm Implanted:Qty: 1 on 08/07/2023 by Joseph Barnes MD at [facility] Right: Leg MALCOLM [id number] 06/02/2032 47-248 4-03 50 / [id number] Procedures Procedure Name Priority Date/Time Associated Diagnosis Comments XR TIBIA AND FIBULA RIGHT 2 VIEWS Routine 08/18/2024 11:25 AM PROFESSIONAL ATHLETE Status post surgery CT TIBIA FIBULA LOWER LEG RIGHT WO CONTRAST STAT 06/30/2024 2:00 PM PROFESSIONAL ATHLETE Status post hardware removal Status post surgery Post-op pain XR TIBIA AND FIBULA RIGHT 2 VIEWS Routine 06/30/2024 11:32 AM PROFESSIONAL ATHLETE Status post hardware removal from Last 3 Months Results * XR Tibia and Fibula Right 2 Views (08/18/2024 11:25 AM PROFESSIONAL ATHLETE) Only the most recent of2 resultswithin the time period is included. Anatomical Region Laterality Modality Leg, Knee, Ankle Right Computed Radiog josue Impressions 08/18/2024 3:25 PM PROFESSIONAL ATHLETE Impression: 1. Healing osteotomy with mature callus formation in the midshaft of the tibia and fibula. MARY SANCHEZ MD Narrative 08/18/2024 3:25 PM PROFESSIONAL ATHLETE 2 views right tibia/fibula radiographs 08/18/2024 3:22 [...] MD IMG DIAGNOSTIC IMAGING ORDERABLES Final Result * CT Tibia Fibula Lower Leg Right wo Contrast (06/30/2024 2:00 PM PROFESSIONAL ATHLETE) Anatomical Region Laterality Modality Right Calf, SUBRAD CT MSK, UMP CT MSK, RAD CT Computed Tomography Impressions 06/30/2024 2:54 PM PROFESSIONAL ATHLETE Impression: Healing osteotomy with mature periosteal callus in the mid shaft of tibia and fibula. I have personally reviewed the examination and initial interpretation and I agree with the findings. FELI FATIMA MD Narrative 06/30/2024 2:54 PM PROFESSIONAL ATHLETE Exam: CT TIBIA FIBULA LOWER LEG RIGHT WO CONTRAST 06/30/2024 2:20 PM History: Area of interest - lower extremity, upper leg/lower leg; Status post hardware removal; Status post surgery; Post-op pain Techniques: Multislice CT examination was performed of the right tibia fibula with multiplanar reconstructions displayed in multiple window settings. Imaging was performed without IV contrast material. 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 Bones: Status post removal of intramedullary annetta in the right tibia. Healing osteotomy with mature periosteal callus in the mid shaft of tibia and fibula. Focal residual lucency in the anterior osteotomy site with bony bridging posteriorly . Soft tissues: Evaluation of the soft tissue, particularly internal derangement of joint assessment is limited with CT technique. Knee joint and ankle joints are congruent. No large joint effusion. Postsurgical scarring. Procedure Note Feli Fatima MD - 06/30/2024 Exam: CT TIBIA FIBULA LOWER LEG RIGHT WO CONTRAST 06/30/2024 2:20 PM History: Area of interest - lower extremity, upper leg/lower leg; Status post hardware removal; Status post surgery; Post-op pain Techniques: Multislice CT examination was performed of the right tibia fibula with multiplanar reconstructions displayed in multiple window settings. Imaging was performed without IV contrast material. 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 Bones: Status post removal of intramedullary annetta in the right tibia. Healing osteotomy with mature periosteal callus in the mid shaft of tibia and fibula. Focal residual lucency in the anterior osteotomy site with bony bridging posteriorly . Soft tissues: Evaluation of the soft tissue, particularly internal derangement of joint assessment is limited with CT technique. Knee joint and ankle joints are congruent. No large joint effusion. Postsurgical scarring. Impression: Healing osteotomy with mature periosteal callus in the mid shaft of tibia and fibula. I have personally reviewed the examination and initial interpretation and I agree with the findings. FELI FATIMA MD Joseph Barnes MD IMG CT ORDERABLES Final Result from Last 3 Months Insurance [employer] Advance Directives For more information, please contact: [phone] * Full Code (Latest Code Status on [...] 4:25 PM 03/06/2018 7:18 AM Care Teams Chocolate Refining Roller Relationship Specialty Start Date End Date Clinic, [address] [id number] PCP - General Internal Medicine 10/21/17 Carol Hughes MD [address] [place] [address] Orthopedics 11/23/17 Carol Snider MD [address] [address] Referring Physician Orthopaedic Surgery 11/23/17 Joseph Barnes MD [address] [place] [address] Assigned Musculoskeletal Provider 05/11/23
--- OUTSIDE RECORDS SUMMARY | 2024-08-25 14:06 | XMS_ITS | Encounter Summary ---
Author Organization [place] Address [address] [place] [address] Care Team Providers Care Nurse Head Name Role Phone [facility] Primary Care Provider Carol Hughes MD Unavailable Carol Snider MD Unavailable Joseph Barnes MD Unavailable [phone] Reason for Visit * Reason Onset Date Comments Screw Removal, CALL BACK 04/30/2024 Encounter Details Date Type Department Care Team (Late st Contact Info) Description 04/30/2024 Telephone [facility] [address] [place] [address] Joseph Barnes MD [address] [place] [address] Screw Removal, CALL BACK Social History Tobacco Use Types Packs/Day Years [...] on file Legal Sex Female 4:31 AM CAREER SPECIALIST Gender Identity Not on file Sexual Orientation Not on file documented as of this encounter Miscellaneous Notes * Telephone Encounter - Carol King - 04/30/2024 12:49 PM CDTSummary: Screw Removal, CALL BACK Pt would like a CALL BACK to schedule to get her screws out by the end of the year. RIGHT leg Please CALL pt to discuss and schedule. Thank you. documented in this encounter Plan of Treatment Upcoming Encounters Date Type Department Care Team (Late st Contact Info) Description 11/03/2024 11:10 AM CDT Office Visit [facility] [address] [phone] Joseph Barnes MD [address] [place] [address] documented as of this encounter Visit Diagnoses Not on filedocumented in this encounter Care Teams Nurse Head Relationship Specialty Start Date End Date Clinic, [address] [address] PCP - General Internal Medicine 10/21/17 Carol Hughes MD [address] [place] [address] Orthopedics 11/23/17 Carol Snider MD [address] [address] Referring Physician Orthopaedic Surgery 11/23/17 Joseph Barnes MD [address] [place] [address] Assigned Musculoskeletal Provider 05/11/23 documented as of this encounter
[2024-08-25 14:23] VITALS: BP 110/60; PULSE 85; RESP 18; TEMP 36.9; O2SAT 98; BMI 24.0
--- NOTE | 2024-08-25 14:35 | CRLHL7_ITS ---
For Patients: As a result of the Century Cures Act, medical imaging exams and procedure reports are released immediately into your electronic medical record. You may view this report before your referring provider. If you have questions, please contact your health care provider. INDICATION: BURNING CHEST TECHNIQUE: Chest 1 view COMPARISON: 08/01/2020 FINDINGS: Cardiovascular and mediastinum: Heart size and vasculature are normal in caliber and appearance. Lungs and pleural spaces: Lungs are clear. No sign of infiltrate or mass. No sign of pleural effusion. No pneumothorax. Bones and soft tissues: No significant findings. IMPRESSION: No acute findings. Dictated by Gabriele Messina MD @ 08/25/2024 2:58:55 PM (Electronically Signed)
--- OUTSIDE RECORDS SUMMARY | 2024-08-25 14:47 | XMS_ITS | Encounter Summary ---
Author Organization [place] Address [address] [place] [address] Care Team Providers Care Junior Software Engineer Name Role Phone [facility] Primary Care Provider Carol Hughes MD Unavailable [phone] Carol Snider MD Unavailable [phone] Joseph Barnes MD Unavailable [phone] Encounter Details Date Type Department Care Team (Latest Contact Info) Description 07/17/2024 8:00 AM SALES ENABLEMENT MANAGER Therapy Visit [facility] [address] [place] [address] Joseph Barnes MD [address] [place] [phone] Errol Baldwin [facility] [place], [place] [phone] Right leg pain (Primary Dx); Pain in [...] on file Legal Sex Female 4:31 AM SALES ENABLEMENT MANAGER Gender Identity Not on file Sexual Orientation Not on file documented as of this encounter Plan of Treatment Upcoming Encounters Date Type Department Care Team (Late st Contact Info) Description 11/03/2024 11:10 AM CDT Office Visit [facility] [address] [phone] Joseph Barnes MD [address] [place] [address] [phone] documented as of this encounter Visit Diagnoses Diagnosis Right leg pain- Primary Pain in limb Pain in joint, ankle and foot, right Status post hardware removal documented in this encounter Care Teams Junior Software Engineer Relationship Specialty Start Date End Date Clinic, [address] [phone] PCP - General Internal Medicine 10/21/17 Carol Hughes MD [address] [place] [phone] Orthopedics 11/23/17 Carol Snider MD [address] [address] Referring Physician Orthopaedic Surgery 11/23/17 Joseph Barnes MD [address] [place] [address] Assigned Musculoskeletal Provider 05/11/23 documented as of this encounter
--- OUTSIDE RECORDS SUMMARY | 2024-08-25 14:47 | XMS_ITS | Encounter Summary ---
Author Organization [place] Address [address] [place] [address] Care Team Providers Care Marble Machine Tender Name Role Phone Clinic, 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 OFFICER Gender Identity Not on file Sexual Orientation Not on file documented as of this encounter Plan of Treatment Upcoming Encounters Date Type Department Care Team (Late st Contact Info) Description 11/03/2024 11:10 AM CDT Office Visit [facility] [address] [place] [address] Joseph Barnes MD [address] [place] [address] documented as of this encounter Visit Diagnoses Not on filedocumented in this encounter Care Teams Marble Machine Tender Relationship Specialty Start Date End Date Clinic, [address] [address] PCP - General Internal Medicine 10/21/17 Carol Hughes MD [address] [place] [address] Orthopedics 11/23/17 aCrol Snider MD [address] [address] Referring Physician Orthopaedic Surgery 11/23/17 Joseph Barnes MD [address] [place] [address] Assigned Musculoskeletal Provider 05/11/23 documented as of this encounter
--- OUTSIDE RECORDS SUMMARY | 2024-08-25 14:47 | XMS_ITS | Encounter Summary ---
Author Organization [place] Address [address] [facility] 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 Gender Identity Not on file Sexual Orientation Not on file documented as of this encounter Plan of Treatment Upcoming Encounters Date Type Department Care Team (Late st Contact Info) Description 11/03/2024 11:10 AM CDT Office Visit [facility] [address] [place] [address] Joseph Barnes MD [address] [place] [address] documented as of this encounter Visit Diagnoses Not on filedocumented in this encounter Care Teams Shredded Filler Hopper Feeder Relationship Specialty Start Date End Date Clinic, [address] [address] PCP - General Internal Medicine 10/21/17 Carol Hughes MD [address] [place] [address] Orthopedics 11/23/17 Carol Snider MD [address] [address] Referring Physician Orthopaedic Surgery 11/23/17 Joseph Barnes MD [address] [place] [address] Assigned Musculoskeletal Provider 05/11/23 documented as of this encounter
--- OUTSIDE RECORDS SUMMARY | 2024-08-25 14:47 | XMS_ITS | Encounter Summary ---
Author Organization [place] Address [address] [place] [address] Care Team Providers Care Vb Net Developer Name Role Phone Clinic, [facility] Primary Care Provider Carol Hughes MD Unavailable Carol Snider MD Unavailable [phone] Joseph Barnes MD Unavailable [phone] Reason for Visit * Rehab Therapy Physical Therapy (Priority: 1-2 Weeks) - Pending Review Specialty Diagnoses / Procedures Referred By Contmatteo t Referred To Contact Diagnoses Status post hardware removal Joseph Branes MD [address] [place] [address] Phone: tel: fax: Referral ID Status Reason Start Date Expiration Date V isits Requested Visits Authorized [id number] Pending Review 06/08/2024 06/08/2025 1 1 Encounter Details Date Type Department Care Team (Latest Contact Info) Description 08/10/2024 8:40 AM VECTOR CONTROL ASSISTANT Therapy Visit [facility] [address] 5th [place] [address] Errol Baldwin [facility] [place] [address] Right leg pain (Primary Dx); Pain in [...] on file Legal Sex Female 4:31 AM VECTOR CONTROL ASSISTANT Gender Identity Not on file Sexual Orientation Not on file documented as of this encounter Plan of Treatment Upcoming Encounters Date Type Department Care Team (Late st Contact Info) Description 11/03/2024 11:10 AM CDT Office Visit [facility] [address] [phone] Joseph Barnes MD [address] [place] [address] documented as of this encounter Visit Diagnoses Diagnosis Right leg pain- Primary Pain in limb Pain in joint, ankle and foot, right Status post hardware removal documented in this encounter Care Teams Vb Net Developer Relationship Specialty Start Date End Date [facility], [address] [address] PCP - General Internal Medicine 10/21/17 Carol Hughes MD [address] [place] [address] Orthopedics 11/23/17 Carol Snider MD [address] [address] Referring Physician Orthopaedic Surgery 11/23/17 Joseph Barnes MD [address] [place] [address] Assigned Musculoskeletal Provider 05/11/23 documented as of this encounter
--- OUTSIDE RECORDS SUMMARY | 2024-08-25 14:47 | XMS_ITS | Encounter Summary ---
Author Organization [place] Address [address] [facility] [address] Care Team Providers Care Celebrity Manager Name Role Phone Clinic, [facility] Primary Care Provider Carol Hughes MD Unavailable [phone] Carol Snider MD Unavailable Joseph Barnes MD Unavailable Encounter Details Date Type Department Care Team ([facility] st Contact Info) Description 07/06/2024 Result Follow Up [facility] Services - Musculoskeletal Service Line [address] [place] [address] Joseph Barnes MD [address] [place] [phone] Social History Tobacco Use Types Packs/Day Years [...] file Legal Sex Female 4:31 AM SENIOR ANALYTICAL CHEMIST Gender Identity Not on file Sexual Orientation Not on file documented as of this encounter Plan of Treatment Upcoming Encounters Date Type Department Care Team (Late st Contact Info) Description 11/03/2024 11:10 AM CDT Office Visit [facility] [address] [place] [phone] Joseph Barnes MD [address] [place] [address] documented as of this encounter Visit Diagnoses Not on filedocumented in this encounter Care Teams Celebrity Manager Relationship Specialty Start Date End Date Clinic, [address] [address] PCP - General Internal Medicine 10/21/17 Carol Hughes MD [address] [place] [address] Orthopedics 11/23/17 Carol Snider MD [address] [address] Referring Physician Orthopaedic Surgery 11/23/17 Joseph Barnes MD [address] [place] [address] Assigned Musculoskeletal Provider 05/11/23 documented as of this encounter
--- OUTSIDE RECORDS SUMMARY | 2024-08-25 14:47 | XMS_ITS | Encounter Summary ---
Author Organization [place] Address [address] [facility] [place] [address] Care Team Providers Care Production Controller Name Role Phone [facility] Primary Care Provider Carol Hughes MD Unavailable [phone] Carol Snider MD Unavailable [phone] Joseph Barnes MD Unavailable [phone] Reason for Visit * Reason Onset Date Comments Schedule Surgery 03/31/2024 Encounter Details Date Type Department Care Team (Late st Contact Info) Description 03/31/2024 Telephone [facility] [address] [place] [address] Joseph Barnes MD [address] [place] [address] Schedule Surgery Social History Tobacco Use [...] on file Legal Sex Female 4:31 AM SKIVER UPPERS OR LININGS Gender Identity Not on file Sexual Orientation Not on file documented as of this encounter Miscellaneous Notes * Telephone Encounter - BabatundeMaggie hilton - 03/31/2024 3:44 PM CDT Other: Patient is calling to schedule screw removal surgery with Dr. Barnes. Please call her back. Could we send this information to you [facility] or would you prefer to receive a phone call?: Patient would prefer a phone call Okay to leave a detailed message?: Yes at Cell number on file: Telephone Information: Mobile Not on file. documented in this encounter Plan of Treatment Upcoming Encounters Date Type Department Care Team (Late st Contact Info) Description 11/03/2024 11:10 AM CDT Office Visit [facility] [address] [phone] Joseph Barnes MD [address] [place] [address] documented as of this encounter Visit Diagnoses Not on filedocumented in this encounter Care Teams Production Controller Relationship Specialty Start Date End Date Clinic, [address] [address] PCP - General Internal Medicine 10/21/17 Carol Hughes MD [address] [place] [address] Orthopedics 11/23/17 Carol Snider MD [address] [address] Referring Physician Orthopaedic Surgery 11/23/17 Joseph Barnes MD [address] [place] [address] Assigned Musculoskeletal Provider 05/11/23 documented as of this encounter
--- OUTSIDE RECORDS SUMMARY | 2024-08-25 14:47 | XMS_ITS | Encounter Summary ---
Author Organization [place] Address [address] [facility] [place] [address] Care Team Providers Care Insurance Risk Manager Name Role Phone Clinic, [facility] Primary Care Provider Carol Hughes MD Unavailable [phone] Carol Snider MD Unavailable Joseph Barnes MD Unavailable [phone] Encounter Details Date Type Department Care Team [...] on file Legal Sex Female 4:31 AM SOLUTION DEVELOPER Gender Identity Not on file Sexual Orientation Not on file documented as of this encounter Plan of Treatment Upcoming Encounters Date Type Department Care Team (Late st Contact Info) Description 11/03/2024 11:10 AM CDT Office Visit [facility] [address] [place] [address] Joseph Barnes MD [address] [place] [address] documented as of this encounter Visit Diagnoses Not on filedocumented in this encounter Care Teams Insurance Risk Manager Relationship Specialty Start Date End Date Clinic, [address] [address] PCP - General Internal Medicine 10/21/17 Carol Hughes MD [address] [place] [address] Orthopedics 11/23/17 Carol Snider MD [address] [address] Referring Physician Orthopaedic Surgery 11/23/17 Joseph Barnes MD [address] [place] [address] Assigned Musculoskeletal Provider 05/11/23 documented as of this encounter
--- OUTSIDE RECORDS SUMMARY | 2024-08-25 14:47 | XMS_ITS | Encounter Summary ---
Author Organization [place] Address [address] [facility] [place] [address] Care Team Providers Care Blast Hole Driller Name Role Phone [facility] Primary Care Provider Carol Hughes MD Unavailable [phone] Carol Snider MD Unavailable Joseph Barnes MD Unavailable Reason for Visit * Reason Comments RECHECK Follow up right leg. Status post right tibia nail removal with proximal tibia exostosis excision performed on May 20, 2024 Encounter Details Date Type Department Care Team (Late st Contact Info) Description 08/18/2024 11:40 AM HOTEL VALET ATTENDANT Office Visit [facility] [address] [address] Joseph Barnes MD [address] [place] [address] Pain in joint, ankle and foot, [...] on file Legal Sex Female 4:31 AM HOTEL VALET ATTENDANT Gender Identity Not on file Sexual Orientation [...] will be obtained. All questions were answered. L VALET ATTENDANT documented in this encounter Nursing Notes * Maddison Yuan ATC - 08/18/2024 11:40 AM CST Reason For Visit: Chief Complaint Patient presents with RECHECK Follow up right leg. Status post right tibia nail removal with proximal tibia exostosis excision performed on May 20, 2024 19 year old 2005 Primary MD: Clinic, [facility] There were no vitals taken for this visit. Pain Assessment Patient Currently in Pain: Yes 0-10 Pain Scale: 5 Primary Pain Location: Leg (right) Ankit Yuan ATC L VALET ATTENDANT documented in this encounter Plan of Treatment Upcoming Encounters Date Type Department Care Team (Late st Contact Info) Description 11/03/2024 11:10 AM CDT Office Visit [facility] [address] [place] [address] Joseph Barnes MD [address] [place] [address] documented as of this encounter Visit Diagnoses Diagnosis Pain in joint, ankle and foot, right- Primary documented in this encounter Care Teams Blast Hole Driller Relationship Specialty Start Date End Date [facility], [address] [address] PCP - General Internal Medicine 10/21/17 Carol Hughes MD [address] [place] [address] Orthopedics 11/23/17 Carol Snider MD [address] [address] Referring Physician Orthopaedic Surgery 11/23/17 Joseph Barnes MD [address] [place] [address] Assigned Musculoskeletal Provider 05/11/23 documented as of this encounter
--- OUTSIDE RECORDS SUMMARY | 2024-08-25 14:47 | XMS_ITS | Encounter Summary ---
Author Organization [place] Address [address] [place] [address] Care Team Providers Care Medical Office Technology Instructor Name Role Phone Clinic, [facility] Primary Care Provider Carol Hughes MD Unavailable [phone] Carol Snider MD Unavailable [phone] Joseph Barnes MD Unavailable [phone] Reason for Visit * Rehab Therapy Physical Therapy (Priority: 1-2 Weeks) - Pending Review Specialty Diagnoses / Procedures Referred By Contmatteo t Referred To Contact Diagnoses Status post hardware removal Joseph Barnes MD [address] [place] [address] Phone: tel: fax: Referral ID Status Reason Start Date Expiration Date V isits Requested Visits Authorized [id number] Pending Review 06/08/2024 06/08/2025 1 1 Encounter Details Date Type Department Care Team (Latest Contact Info) Description 07/28/2024 8:00 AM STOPBOARD ASSEMBLER Therapy Visit [facility] [address] 5th [place] [address] Errol Baldwin [facility] [address] Right leg pain (Primary Dx); Pain in [...] on file Legal Sex Female 4:31 AM STOPBOARD ASSEMBLER Gender Identity Not on file Sexual Orientation Not on file documented as of this encounter Plan of Treatment Upcoming Encounters Date Type Department Care Team (Late st Contact Info) Description 11/03/2024 11:10 AM CDT Office Visit [facility] [address] [phone] Joseph Barnes MD [address] [place] [address] documented as of this encounter Visit Diagnoses Diagnosis Right leg pain- Primary Pain in limb Pain in joint, ankle and foot, right Status post hardware removal documented in this encounter Care Teams Medical Office Technology Instructor Relationship Specialty Start Date End Date [facility], [address] [address] PCP - General Internal Medicine 10/21/17 Carol Hughes MD [address] [place] [address] Orthopedics 11/23/17 Carol Snider MD [address] [address] Referring Physician Orthopaedic Surgery 11/23/17 Joseph Barnes MD [address] [place] [address] Assigned Musculoskeletal Provider 05/11/23 documented as of this encounter
--- OUTSIDE RECORDS SUMMARY | 2024-08-25 14:47 | XMS_ITS | Encounter Summary ---
Author Organization [place] Address [address] [place] [address] Care Team Providers Care Petroleum Refining Firer Name Role Phone [facility] Primary Care Provider Carol Hughes MD Unavailable [phone] Carol Snider MD Unavailable [phone] Joseph Barnes MD Unavailable [phone] Reason for Referral * Diagnostic Imaging XR (Routine) - Pending Review Specialty Diagnoses / Procedures Referred By Bre t Referred To Contact Radiology. Diagnoses Status post surgery Procedures XR Tibia and Fibula Right 2 Views Joseph Banres MD [address] [place] [address] Phone: tel: fax: Referral ID Status Reason Start Date Expiration Date V isits Requested Visits Authorized [id number] Pending Review 08/04/2024 08/04/2025 1 1 EDUCATIONAL AIDE Encounter Details Date Type Department Care Team (Late st Contact Info) Description 08/04/2024 Orders Only [facility] [address] [place] [address] Joseph Barnes MD [address] [place] [address] Status post surgery (Primary Dx) Social History [...] on file Legal Sex Female 4:31 AM SLD EDUCATIONAL AIDE Gender Identity Not on file Sexual Orientation Not on file documented as of this encounter Plan of Treatment Upcoming Encounters Date Type Department Care Team (Late st Contact Info) Description 11/03/2024 11:10 AM CDT Office Visit [facility] [address] [phone] Joseph Barnes MD [address] [place] [address] documented as of this encounter Results * XR Tibia and Fibula Right 2 Views (08/18/2024 11:25 AM SLD EDUCATIONAL AIDE) Anatomical Region Laterality Modality Leg, Knee, Ankle Right Computed Radiog josue Impressions 08/18/2024 3:25 PM SLD EDUCATIONAL AIDE Impression: 1. Healing osteotomy with mature callus formation in the midshaft of the tibia and fibula. MARY SANCHEZ MD Narrative 08/18/2024 3:25 PM SLD EDUCATIONAL AIDE 2 views right tibia/fibula radiographs 08/18/2024 3:22 [...] surgery documented in this encounter Care Teams Petroleum Refining Firer Relationship Specialty Start Date End Date [facility], [address] [address] PCP - General Internal Medicine 10/21/17 Carol Hughes MD [address] [place] [address] Orthopedics 11/23/17 Carol Snider MD [address] [address] Referring Physician Orthopaedic Surgery 11/23/17 Joseph Barnes MD [address] [place] [address] Assigned Musculoskeletal Provider 05/11/23 documented as of this encounter
--- OUTSIDE RECORDS SUMMARY | 2024-08-25 14:47 | XMS_ITS | Encounter Summary ---
Author Organization [place] Address [address] [facility] [place] [address] Care Team Providers Care Corporate Webmaster Name Role Phone Clinic, [facility] Primary Care Provider Carol Hughes MD Unavailable [phone] Carol Snider MD Unavailable Joseph Barnes MD Unavailable [phone] Encounter Details Date Type Department Care Team [...] on file Legal Sex Female 4:31 AM STOCKROOM ASSOCIATE Gender Identity Not on file Sexual Orientation Not on file documented as of this encounter Plan of Treatment Upcoming Encounters Date Type Department Care Team (Late st Contact Info) Description 11/03/2024 11:10 AM CDT Office Visit [facility] [address] [place] [address] Joseph Barnes MD [address] [place] [address] documented as of this encounter Visit Diagnoses Not on filedocumented in this encounter Care Teams Corporate Webmaster Relationship Specialty Start Date End Date Clinic, [address] [address] PCP - General Internal Medicine 10/21/17 Carol Hughes MD [address] [place] [address] Orthopedics 11/23/17 Carol Snider MD [address] [address] Referring Physician Orthopaedic Surgery 11/23/17 Joseph Barnes MD [address] [place] [address] Assigned Musculoskeletal Provider 05/11/23 documented as of this encounter
--- OUTSIDE RECORDS SUMMARY | 2024-08-25 14:47 | XMS_ITS | Encounter Summary ---
Author Organization [place] Address [address] [place] [address] Care Team Providers Care Mangle Catcher Name Role Phone Clinic, [facility] Primary Care Provider Carol Hughes MD Unavailable [phone] Carol Snider MD Unavailable [phone] Joseph Barnes MD Unavailable [phone] Reason for Visit * Diagnostic Imaging XR (Routine) - Pending Review Specialty Diagnoses / Procedures Referred By Bre rivero Referred To Contact Radiology. Diagnoses Status post surgery Procedures XR Tibia and Fibula Right 2 Views Joseph Barnes MD [address] [place] [address] Phone: tel: fax: Referral ID Status Reason Start Date Expiration Date V isits Requested Visits Authorized [id number] Pending Review 08/04/2024 08/04/2025 1 1 Encounter Details Date Type Department Care Team (Latest Contact Info) Description 08/18/2024 11:30 AM STOREHOUSE CLERK Ancillary Procedure [facility]ray [address] 4th [place] [address] Joseph Barnes MD [address] [place] [address] Status post surgery Social History Tobacco Use [...] on file Legal Sex Female 4:31 AM STOREHOUSE CLERK Gender Identity Not on file Sexual Orientation Not on file documented as of this encounter Plan of Treatment Upcoming Encounters Date Type Department Care Team (Late st Contact Info) Description 11/03/2024 11:10 AM CDT Office Visit [facility] [address] [phone] Joseph Barnes MD [address] [place] [address] documented as of this encounter Procedures Procedure Name Priority Date/Time Associated Diagnosis Comments XR TIBIA AND FIBULA RIGHT 2 VIEWS Routine 08/18/2024 11:25 AM STOREHOUSE CLERK Status post surgery documented in this encounter Results * XR Tibia and Fibula Right 2 Views (08/18/2024 11:25 AM STOREHOUSE CLERK) Anatomical Region Laterality Modality Leg, Knee, Ankle Right Computed Radiog josue Impressions 08/18/2024 3:25 PM STOREHOUSE CLERK Impression: 1. Healing osteotomy with mature callus formation in the midshaft of the tibia and fibula. MARY SANCHEZ MD Narrative 08/18/2024 3:25 PM STOREHOUSE CLERK 2 views right tibia/fibula radiographs 08/18/2024 3:22 [...] surgery documented in this encounter Care Teams Mangle Catcher Relationship Specialty Start Date End Date [facility], [address] [address] PCP - General Internal Medicine 10/21/17 Carol Hughes MD [address] [place] [address] Orthopedics 11/23/17 Carol Snider MD [address] [address] Referring Physician Orthopaedic Surgery 11/23/17 Joseph Barnes MD [address] [place] [address] Assigned Musculoskeletal Provider 05/11/23 documented as of this encounter
--- OUTSIDE RECORDS SUMMARY | 2024-08-25 14:48 | XMS_ITS | Encounter Summary ---
Author Organization [place] Address [address] [facility] [place] [address] Care Team Providers Care Filter Tip Inspector Name Role Phone Clinic, [facility] Primary Care Provider Carol Hughes MD Unavailable Carol Snider MD Unavailable Joseph Barnes MD Unavailable Encounter Details Date Type Department Care Team (Late st Contact Info) Description 04/01/2024 [facility] Medical Adv[facility] [address] 4th [place] [address] Amber Lofton RN Social History [...] on file Legal Sex Female 4:31 AM MASSAGE OPERATOR Gender Identity Not on file Sexual Orientation Not on file documented as of this encounter Plan of Treatment Upcoming Encounters Date Type Department Care Team (Late st Contact Info) Description 11/03/2024 11:10 AM CDT Office Visit [facility] [place] [phone] [facility] [address] 4th [place] [phone] Joseph Barnes MD [address] [place] [address] documented as of this encounter Visit Diagnoses Not on filedocumented in this encounter Care Teams Filter Tip Inspector Relationship Specialty Start Date End Date Clinic, [address] [address] PCP - General Internal Medicine 10/21/17 Carol Hughes MD [address] [place] [address] Orthopedics 11/23/17 Carol Snider MD [address] [address] Referring Physician Orthopaedic Surgery 11/23/17 Joseph Barnes MD [address] [place] [address] Assigned Musculoskeletal Provider 05/11/23 documented as of this encounter
--- OUTSIDE RECORDS SUMMARY | 2024-08-25 14:48 | XMS_ITS | Encounter Summary ---
Author Organization [place] Address [address] [facility] [address] Care Team Providers Care Horse Racer Name Role Phone [facility] Primary Care Provider Carol Hughes MD Unavailable [phone] Carol Snider MD Unavailable Joseph Barnes MD Unavailable Reason for Visit * Reason Onset Date Comments Screw Removal, CALL BACK 04/30/2024 Encounter Details Date Type Department Care Team (Late st Contact Info) Description 04/30/2024 Telephone [facility] [address] [place] [address] Joseph Barnes MD [address] [place] [address] Screw Removal, CALL BACK Social History [...] on file Legal Sex Female 4:31 AM COMMERCIAL FLOOR COVERING INSTALLER Gender Identity Not on file Sexual Orientation [...] Description 11/03/2024 11:10 AM CDT Office Visit [facility] [address] [phone] Joseph Barnes MD [address] [place] [address] documented as of this encounter Visit Diagnoses Not on filedocumented in this encounter Care Teams Horse Racer Relationship Specialty Start Date End Date Clinic, [address] [address] PCP - General Internal Medicine 10/21/17 Carol Hughes MD [address] [place] [address] Orthopedics 11/23/17 Carol Snider MD [address] [address] Referring Physician Orthopaedic Surgery 11/23/17 Joseph Barnes MD [address] [place] [address] Assigned Musculoskeletal Provider 05/11/23 documented as of this encounter
--- OUTSIDE RECORDS SUMMARY | 2024-08-25 14:48 | XMS_ITS | Clinical Summary ---
Author Organization [facility] Address [address] [place] [address] Care Team Providers Care Pollution Control Engineer Name Role Phone Clinic, [facility] Primary Care Provider Carol Hughes MD Unavailable [phone] Carol Snider MD Unavailable [phone] Joseph Barnes MD Unavailable [phone] Allergies Active Allergy Reactions Criticality Noted Date [...] Department Care Team Description 08/18/2024 11:40 AM ENDOSCOPY TECHNICIAN Office Visit [facility] [address] [place] [address] Joseph Barnes MD Pain in joint, ankle and foot, right (Primary Dx) 08/18/2024 11:30 AM ENDOSCOPY TECHNICIAN Ancillary Procedure [facility] Xray [address] [place] [address] Joseph Barnes MD Status post surgery 08/18/2024 Travel 08/10/2024 8:40 AM ENDOSCOPY TECHNICIAN Therapy Visit [address] [place] [address] Briard, Errol Right leg pain (Primary Dx); Pain in joint, ankle and foot, right; Status post hardware removal 08/10/2024 Travel 08/07/2024 Travel 08/04/2024 Orders Only [facility] [address] [place] [address] Joseph Barnes MD Status post surgery (Primary Dx) 07/28/2024 8:00 AM ENDOSCOPY TECHNICIAN Therapy Visit [address] [place] [address] Briard, Errol Right leg pain (Primary Dx); Pain in joint, ankle and foot, right; Status post hardware removal 07/28/2024 Travel 07/17/2024 8:00 AM ENDOSCOPY TECHNICIAN Therapy Visit [address] [place] [address] Joseph Barnes MD Briard, Lance Right leg pain (Primary Dx); Pain in joint, ankle and foot, right; Status post hardware removal 07/17/2024 Travel 07/10/2024 Telephone [facility] [address] [place] [address] Joseph Barnes MD 07/06/2024 Result Follow Up [facility] Service Line [address] [place] [phone] Joseph Barnes MD 06/30/2024 2:00 PM ENDOSCOPY TECHNICIAN Ancillary Procedure [facility] [address] [place] [address] Joseph Barnes MD Status post hardware removal; Status post surgery; Post-op pain 06/30/2024 12:00 PM ENDOSCOPY TECHNICIAN Office Visit [facility] [address] [place] [address] Joseph Barnes MD Status post hardware removal (Primary Dx); Status post surgery; Post-op pain 06/30/2024 11:50 AM ENDOSCOPY TECHNICIAN Ancillary Procedure [facility] X[facility] [address] [place] [address] Joseph Barnes MD Status post hardware removal 06/30/2024 Travel 06/29/2024 Travel 06/26/2024 Orders Only [facility] [address] [place] [address] Joseph Barnes MD Status post hardware removal (Primary Dx) 06/17/2024 10:40 AM ENDOSCOPY TECHNICIAN Therapy Visit M [address] [place] [address] Errol Baldwin Right leg pain (Primary Dx); Pain in joint, ankle and foot, right; Status post hardware removal 06/17/2024 Travel 06/16/2024 Travel 06/09/2024 1:50 PM ENDOSCOPY TECHNICIAN Therapy Visit [address] [place] [phone] Joseph Barnes MD Briard, Lance Right leg pain (Primary Dx); Status post hardware removal; Pain in joint, ankle and foot, right 06/09/2024 Travel 06/08/2024 11:00 AM ENDOSCOPY TECHNICIAN Office Visit [facility] [address] [phone] Nurse, Valentina [facility] Status post hardware removal (Primary Dx) 06/08/2024 MyC Medical Advice [facility] [address] [phone] Halie Sanders ATC 06/08/[address] [phone] Joseph Barnes MD Call Back (pain) 06/08/2024 [...] on file Legal Sex Female 4:31 AM ENDOSCOPY TECHNICIAN Gender Identity Not on file Sexual Orientation Not on file Last Filed Vital Signs Vital Sign Reading Time Taken Comments Blood Pressure 100/64 05/20/2024 5:00 PM ENDOSCOPY TECHNICIAN Pulse 73 05/20/2024 5:00 PM ENDOSCOPY TECHNICIAN Temperature 36.4 C (97.6 F) 05/20/2024 5:00 PM ENDOSCOPY TECHNICIAN Respiratory Rate 19 05/20/2024 5:00 PM ENDOSCOPY TECHNICIAN Oxygen Saturation 98% 05/20/2024 5:00 PM ENDOSCOPY TECHNICIAN Inhaled Oxygen Concentration - - Weight 61.2 kg (135 lb) 05/20/2024 8:08 AM ENDOSCOPY TECHNICIAN Height 162.6 cm (5' 4) 05/20/2024 8:08 AM ENDOSCOPY TECHNICIAN Body Mass Index 23.17 05/20/2024 8:08 AM ENDOSCOPY TECHNICIAN Plan of Treatment Upcoming Encounters Date Type Department Care Team (Late st Contact Info) Description 11/03/2024 11:10 AM CDT Office Visit [facility] [address] [place] [address] Joseph Barnes MD [address] [place] [phone] Health Maintenance Due Date Last Done Comments [...] history exists Medical Devices Implanted Type Area Communications Professor Device Identifier Shelf Expiration Date Model / Serial / Lot Tibial Nail Implanted:Qty: 1 on 03/05/2018 by Joseph Barnes MD at [facility] Left: Tibia 09/11/2026 [id number] 0- [id number] 5.0 Cortical Screw Implanted:Qty: 1 on 03/05/2018 by Joseph Barnes MD at [facility] Left: Tibia MALCOLM 06/13/2027 [id number] 0-50 / / [id number] 5.0 Cortical Screw Implanted:Qty: 1 on 03/05/2018 by Joseph Barnes MD at [facility] Left: Tibia 10/12/2026 47-2484-03 2-50 / / [id number] Malcolm Natural Nail Tibial Nail 9.3 Mm Yellow Implanted:Qty: 1 on 08/07/2023 by Joseph Barnes MD at [facility] Right: Leg MALCOLM [id number] 04/29/2032 47-249 5-32 0- [id number] Malcolm Natural Nail 5.0 Mm Cortical Screw 27.5 Mm Implanted:Qty: 1 on 08/07/2023 by Joseph Barnes MD at [facility] Right: Leg MALCOLM [id number] 05/14/2027 47-248 4-02 50 / [id number] Malcolm Natural Nail 5.0 Mm Cortical Screw 37.5mm Implanted:Qty: 1 on 08/07/2023 by Joseph Barnes MD at [facility] Right: Leg MALCOLM [id number] 06/02/2032 47-248 4-03 50 / [id number] Procedures Procedure Name Priority Date/Time Associated Diagnosis Comments XR TIBIA AND FIBULA RIGHT 2 VIEWS Routine 08/18/2024 11:25 AM ENDOSCOPY TECHNICIAN Status post surgery CT TIBIA FIBULA LOWER LEG RIGHT WO CONTRAST STAT 06/30/2024 2:00 PM ENDOSCOPY TECHNICIAN Status post hardware removal Status post surgery Post-op pain XR TIBIA AND FIBULA RIGHT 2 VIEWS Routine 06/30/2024 11:32 AM ENDOSCOPY TECHNICIAN Status post hardware removal from Last 3 Months Results * XR Tibia and Fibula Right 2 Views (08/18/2024 11:25 AM ENDOSCOPY TECHNICIAN) Only the most recent of2 resultswithin the time period is included. Anatomical Region Laterality Modality Leg, Knee, Ankle Right Computed Radiog josue Impressions 08/18/2024 3:25 PM ENDOSCOPY TECHNICIAN Impression: 1. Healing osteotomy with mature callus formation in the midshaft of the tibia and fibula. MARY SANCHEZ MD Narrative 08/18/2024 3:25 PM ENDOSCOPY TECHNICIAN 2 views right tibia/fibula radiographs 08/18/2024 3:22 [...] Leg Right wo Contrast (06/30/2024 2:00 PM ENDOSCOPY TECHNICIAN) Anatomical Region Laterality Modality Right Calf, SUBRAD CT MSK, UMP CT MSK, RAD CT Computed Tomography Impressions 06/30/2024 2:54 PM ENDOSCOPY TECHNICIAN Impression: Healing osteotomy with mature periosteal callus in the mid shaft of tibia and fibula. I have personally reviewed the examination and initial interpretation and I agree with the findings. 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 FELI FATMIA MD Joseph Barnes MD IMG CT ORDERABLES Final Result from Last 3 Months Insurance [employer] Advance Directives For more information, please contact: [phone] * Full Code (Latest Code Status on [...] 4:25 PM 03/06/2018 7:18 AM Care Teams Pollution Control Engineer Relationship Specialty Start Date End Date Clinic, [address] [phone] PCP - General Internal Medicine 10/21/17 Carol Hughes MD [address] [place] [address] Orthopedics 11/23/17 Carol Snider MD [address] [address] Referring Physician Orthopaedic Surgery 11/23/17 Joseph Barnes MD [address] [place] [address] Assigned Musculoskeletal Provider 05/11/23
--- OUTSIDE RECORDS SUMMARY | 2024-08-25 14:48 | XMS_ITS | Clinical Summary ---
Author Organization [facility] Address [address] [place] [address] Care Team Providers Care Utility Teller Name Role Phone Needs Pcp, Assignment Primary Care Provider [phone] Source Comments You are receiving this document as you are listed as the primary care provider,follow-up provider, or the patient has been referred to you for consultation.This is in compliance with the Medicare and[facility] EHR Incentive Program,which states Providers who transition their patient to another setting of careor provider of care or refers their patient to another provider of care shouldprovide summary care record for each transition of care or referral. [facility] Allergies No known active allergies Medications Medication Sig Dispensed Refills Start Date End Date Status POTASSIUM CHLORIDE ORIndications:99 mg once a day Indications: 99 mg once a day Active Probiotic Product (PROBIOTIC DAILY OR) Take 1 Tablet by mouth daily. Active rizatriptan (MAXALT-CHAINSAW MECHANIC) 10 MG disintegrating tablet Take 1 Tablet [...] Otitis media 04/30/2006 Overview (03/06/2017): LW Onset: [id number] ; Otitis Media Acute Problem related to psychosocial circumstances Overview (03/06/2017): LW Modifier: dad-Edmund,mom-Olga,sib-Will LW Onset: 06Inq33 ; Psychosocial Circumstance NOS Resolved Problems Problem Noted Date Diagnosed Date Resolved Date Chronic rhinitis 07/02/2005 09/01/2005 Overview (03/06/2017): LW Modifier: amox LW Onset: [id number] ; Rhinitis Purulent Immunizations Name Administration Dates Next Due ALuD-SbsQ-PTM (Pediarix) 2003,2003,0 2003 DTaP/Hib 09/08/2004 Flu Vac [...] 08/30/2014 HepA Completed 03/11/2015, 08/30/2014 Care Teams Utility Teller Relationship Specialty Start Date End Date Needs Pcp, [place] [address] PCP - General 04/10/24
--- OUTSIDE RECORDS SUMMARY | 2024-08-25 14:48 | XMS_ITS | Encounter Summary ---
Author Organization [place] Address [address] [facility] 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 Gender Identity Not on file Sexual Orientation Not on file documented as of this encounter Plan of Treatment Upcoming Encounters Date Type Department Care Team (Late st Contact Info) Description 11/03/2024 11:10 AM CDT Office Visit [facility] [address] [place] [address] Joseph Barnes MD [address] [place] [address] documented as of this encounter Visit Diagnoses Not on filedocumented in this encounter Care Teams Jewel Waxer Relationship Specialty Start Date End Date Clinic, [address] [address] PCP - General Internal Medicine 10/21/17 Carol Hughes MD [address] [place] [address] Orthopedics 11/23/17 Carol Snider MD [address] [address] Referring Physician Orthopaedic Surgery 11/23/17 Joseph Barnes MD [address] [place] [id number] Assigned Musculoskeletal Provider 05/11/23 documented as of this encounter
--- OUTSIDE RECORDS SUMMARY | 2024-08-25 14:48 | XMS_ITS | Encounter Summary ---
Author Organization [facility] Address [address] [place] [address] Care Team Providers Care Orthopaedic Nurse Name Role Phone Clinic, [facility] Primary Care Provider Carol Hughes MD Unavailable [phone] Carol Snider MD Unavailable [phone] Joseph Barnes MD Unavailable Encounter Details Date Type Department Care Team (Late st Contact Info) Description 05/14/2024 MyC Medical Advice [address] [place] [address] Betsy Cat, STIVEN Social History [...] on file Legal Sex Female 4:31 AM TRAVEL RN OR Gender Identity Not on file Sexual Orientation Not on file documented as of this encounter Plan of Treatment Upcoming Encounters Date Type Department Care Team (Late st Contact Info) Description 11/03/2024 11:10 AM CDT Office Visit [facility] [place] [address] [facility] 4th [place] [phone] Joseph Barnes MD [address] [place] [address] documented as of this encounter Visit Diagnoses Not on filedocumented in this encounter Care Teams Orthopaedic Nurse Relationship Specialty Start Date End Date Clinic, [address] [address] PCP - General Internal Medicine 10/21/17 Carol Hughes MD [address] [place] [address] Orthopedics 11/23/17 Carol Snider MD [address] [address] Referring Physician Orthopaedic Surgery 11/23/17 Joseph Barnes MD [address] [place] [address] Assigned Musculoskeletal Provider 05/11/23 documented as of this encounter
--- OUTSIDE RECORDS SUMMARY | 2024-08-25 14:48 | XMS_ITS | Encounter Summary ---
Author Organization [facility] Address [address] [facility] [place] [address] Care Team Providers Care Train Station Agent Name Role Phone Clinic, [facility] Primary Care Provider Carol Hughes MD Unavailable Carol Snider MD Unavailable Joseph Barnes MD Unavailable Encounter Details Date Type Department Care Team (Late st Contact Info) Description 06/08/2024 [facility] Medical Advice [facility] [address] [place] [address] Halie Sanders ATC Social History [...] on file Legal Sex Female 4:31 AM DIABETOLOGIST Gender Identity Not on file Sexual Orientation Not on file documented as of this encounter Plan of Treatment Upcoming Encounters Date Type Department Care Team (Late st Contact Info) Description 11/03/2024 11:10 AM CDT Office Visit [facility] [address] [place] [phone] Joseph Barnes MD [address] [place] [address] documented as of this encounter Visit Diagnoses Not on filedocumented in this encounter Care Teams Train Station Agent Relationship Specialty Start Date End Date Clinic, [address] [address] PCP - General Internal Medicine 10/21/17 Carol Hughes MD [address] [place] [address] Orthopedics 11/23/17 Carol Snider MD [address] [address] Referring Physician Orthopaedic Surgery 11/23/17 Joseph Barnes MD [address] [place] [phone] Assigned Musculoskeletal Provider 05/11/23 documented as of this encounter
--- NOTE | 2024-08-25 14:55 | ED.GENADULT ---
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 Since yesterday it has had some burning along her sternum bilaterally hurts with a deep breath worse with pushing on her chest. She denies trauma or injury. She does have history of asthma tried some inhalers without relief. She has had no swelling or edema no bleeding or clotting problems. She also has history of migraine and social anxiety disorder and paranasal sinusitis. The patient's meds and chart reviewed. She has an IUD in place. Does not smoke. Related Data Home Medications ?Medication ?Instructions ?Recorded ?Confirmed levonorgestrel (Mirena) 1 device intrauterine ONCE 08/29/22 07/30/24 fluoxetine 40 mg capsule 40 mg PO DAILY 08/25/24 08/25/24 rizatriptan 10 mg disintegrating mg 08/25/24 tablet Previous Rx's ?Medication ?Instructions ?Recorded albuterol sulfate 90 mcg/actuation 1 inh inhalation Q6-8H PRN 11/21/23 aerosol inhaler shortness of breath or wheezing #8.5 grams fluticasone 250 mcg-salmeterol 50 1 inh inhalation BID #60 ea 11/21/23 mcg/dose blistr powdr for inhalation (Advair Diskus) trazodone 50 mg tablet 100 mg (2 x 50 mg) PO QHS #180 tabs 12/03/23 topiramate 25 mg tablet 25 mg PO BID #60 tabs 07/30/24 rizatriptan 10 mg tablet 10 mg PO ONCE PRN migraine 08/03/24 headache #30 tabs prednisone 20 mg tablet 20 mg PO BID #10 tabs 08/25/24 Allergies Allergy/AdvReac Type Severity Reaction Status Date / Time doxycycline AdvReac Mild Vomiting Verified 07/30/24 08:43 Review of Systems Status of ROS: Reports: 6 or more systems reviewed and unremarkable except as noted in History and below [facility] Medical History Right wrist pain ?M25.531 - Pain in right wrist (ICD-10) Postconcussion syndrome ?F07.81 - Postconcussional syndrome (ICD-10) Headache ?R51.9 - Headache, unspecified (ICD-10) Ankle pain, left ?M25.572 - Pain in left ankle and joints of left foot (ICD-10) Surgical History S/P correction of deviated nasal septum ?Z98.890 - Other specified postprocedural states (ICD-10) History of tonsillectomy and adenoidectomy (07/02/12) ?Z90.89 - Acquired absence of other organs (ICD-10) History of surgery on extremity ?Z98.890 - Other specified postprocedural states (ICD-10) Family History Family/Other Heart disease Uncle Colon cancer Mother Thyroid disease FH: mental illness Father High cholesterol Other High blood pressure History of hyperlipidemia Stroke Social History Narrative: Does not drink alcohol Does not use illicit drugs Non-smoker Smoking Status: Never smoker Do you use any of these nicotine containing products: None How often do you have a drink containing alcohol: never AUDIT-C Alcohol total score: 0 Non-prescribed substance use: denies use Exam Narrative: Exam Narrative: Objective: The patient's vital signs are completely normal no fever, O2 sat 98% on room air. Patient is in no apparent distress no accessory muscles of respiration use No cyanosis HEENT unremarkable patient is pleasant interactive Neck is supple Chest is clear no rales or wheezing Heart exam is rate and rhythm regular without murmur she has palpable chest wall tenderness along her costochondral margin along her sternum bilaterally. Little bit worse on the left. This is consistent with the pain she has been feeling Extremities are no edema neurologic nonfocal good peripheral perfusion noted Const: Vital Signs, click to edit/add: Vital Signs - 24 hr 08/25/24 14:23 Temperature 98.5 F Pulse Rate [Pulse Oximeter] 85 Respiratory Rate 18 Blood Pressure [Ri ght Upper Arm] 110/60 Pulse Oximetry 98 Oxygen Delivery Me thod Room Air Course Vital Signs Vital signs: Initial Vital Signs Temperature 98.5 F 08/25/24 14:23 Temperature Source Temporal Artery Scan 08/25/24 14:23 Pulse Rate 85 08/25/24 14:23 Respiratory Rate 18 08/25/24 14:23 Blood Pressure 110/60 08/25/24 14:23 Blood Pressure Mean 76 08/25/24 14:23 Pulse Oximetry 98 08/25/24 14:23 Oxygen Delivery Method Room Air 08/25/24 14:23 Vital Signs Temperature 98.5 F 08/25/24 14:23 Pulse Rate 85 08/25/24 14:23 Respiratory Rate 18 08/25/24 14:23 Blood Pressure 110/60 08/25/24 14:23 Pulse Oximetry 98 08/25/24 14:23 Oxygen Delivery Method Room Air 08/25/24 14:23 Temperature 98.5 F 08/25/24 14:23 Pulse Rate 85 08/25/24 14:23 Respiratory Rate 18 08/25/24 14:23 Blood Pressure 110/60 08/25/24 14:23 Pulse Oximetry 98 08/25/24 14:23 Oxygen Delivery Method Room Air 08/25/24 14:23 Medications Administered Medications: Discontinued Medications Generic Name Dose Route Start Last Admin Trade Name Robe PRN Reason Stop Dose Admin Prednisone 50 mg 08/25/24 14:54 08/25/24 15:01 Prednisone 10 Mg Tablet PO 08/25/24 14:55 50 mg ONCE ONE Administration Medical Decision Making [facility] Narrative Medical decision making narrative: [age] year white female with some parasternal tenderness to palpation consistent with costochondritis or inflammatory chest wall condition. I do not think this is asthma she is not wheezing currently she has a good O2 sat. I think this is also not a chemical irritation as it is more likely more costochondral. And I would recommend she try prednisone 50 mg now and then 20 b.i.d. for the next few days. She can use ibuprofen as well. Would recommend recheck with regular doctor next couple of days. I do not suspect a DVT or PE. She also does not present as if it is a viral infection but will check triple swab Addendum chest x-ray by my review looks unremarkable. Patient will have the triple swab done we can call her with results. Prednisone as described above. Recheck with regular doctor in the next few days, return here problems concerns or recurrence. Addendum 3:40 p.m. patient's positive influenza a as well. I would just have her finish the steroid medicine I gave her as she has had inflammation in her chest and has a history of asthma. Would not recommend other treatment at this time, observation fluids isolation for couple of days. Lab Data Labs: Lab Results 08/25/24 Range/Units 14:41 SARS-CoV-2 (PCR) Negative SARS-CoV-2 (Negative) Influenza Type A (PCR) POSITIVE PCR FLU A A (Negative) Influenza Type B (PCR) Negative PCR FLU B (Negative) RSV (PCR) Negative PCR RSV (Negative) Discharge Plan Discharge Clinical Impression: Chest wall pain Patient Disposition: Home, Self-Care Condition: Stable Additional Instructions: Light activity, Advil, prednisone 20 mg b.i.d. for 5 days, follow up with regular doctor next 2 3 days not improving changes concerns worsening return to the ED. Activity Level: Light activity Discharge Diet: Regular Prescriptions: New prednisone 20 mg tablet 20 mg PO BID Qty: 10 0RF No Action topiramate 25 mg tablet 25 mg PO BID Qty: 60 0RF Mirena 21 mcg/24 hours (8 yrs) 52 mg intrauterine device 1 device intrauterine ONCE Rx Instructions: as a single dose fluticasone propion-salmeterol [Advair Diskus] 250-50 mcg/dose blister with device 1 inh inhalation BID Qty: 60 3RF albuterol sulfate 90 mcg/actuation HFA aerosol inhaler 1 inh inhalation Q6-8H PRN (Reason: shortness of breath or wheezing) Qty: 8.5 3RF fluoxetine 40 mg capsule 40 mg PO DAILY rizatriptan 10 mg tablet,disintegrating Patient Comments: TAKE ONE TABLET BY MOUTH AT ONSET OF MIGRAINE. IF SYMPTOMS PERSIST, A SECOND DOSE MAY BE TAKEN IN 2 HOURS. MAX DAILY DOSE 30MG AND MAX USE 5 DAYS PER MONTH trazodone 50 mg tablet 100 mg PO QHS Qty: 180 3RF rizatriptan 10 mg tablet 10 mg PO ONCE PRN (Reason: migraine headache) Qty: 30 1RF Follow Up/Referrals: Cassandra Breen PA-C [Primary Care Provider] - Stand Alone Forms: Auth0 Info Instructions
[2024-08-25] MEDS: predniSONE 10 MG TABLET 50 MG PO (15:01)
[2024-08-25 15:33] LABS: PCR FLU A POSITIVE PCR FLU A (Negative); PCR FLU B Negative PCR FLU B (Negative); PCR RSV Negative PCR RSV (Negative); SARS PCR* Negative SARS-CoV-2 (Negative)
== END 2024-08-25 15:44 | disposition home or self-care (01) ==
PROVIDERS: Emergency Provider Family Medicine; PCP Physician Assistant Medical
DX: R07.89 Other chest pain (principal)
CPT/HCPCS: 71045; 87631; 99284; J7512

== ENCOUNTER 2024-08-27 10:54 | Outpatient (CLI) | payer OTHER, SELFPAY | END 2024-08-27 10:55 | disposition home or self-care (01) | PROVIDERS: PCP Physician Assistant Medical; Visit Provider Physician Assistant Medical | DX: Z11.1 Encounter for screening for respiratory tuberculosis (principal); Z12.4 Encounter for screening for malignant neoplasm of cervix; Z11.3 Encounter for screening for infections with a predominantly sexual mode of transmission; Z13.29 Encounter for screening for other suspected endocrine disorder; Z13.6 Encounter for screening for cardiovascular disorders | CPT/HCPCS: 80053; 80061; 84443; 86480; 87491; 87591; 87624; 87625; 88141; 88142 ==